=== PATIENT | male | born 1950 | race Caucasian/White ===

== ENCOUNTER 2025-03-24 08:43 | Outpatient (AMB) | payer MEDICARE, SELFPAY ==
--- NOTE | 2025-03-24 08:57 | A.OFFPC_ITS ---
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: No Allergies tetracycline Allergy (Unknown, Verified 03/24/25 09:02) Unknown Medication List - Last Reconciled 03/24/25 by Monse Chu PA-C atorvastatin 40 mg PO DAILY warfarin 5 mg PO DAILY Tobacco use date assessed: 03/24/25 Fall risk assessment: No Falls in past year Last assessed Fall Risk: 03/24/25 Dental Screening Dental Screen Date: 03/24/25 Did you have a dental visit in the last 12 months?: Yes Did you have a dental problem in the last 6 months where you did not have access to dental care?: No Was dental information given to patient?: Patient has dentist HPI 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. He is transferring from [place]. -no acute concerns today. CV: Blood pressure today in the office is 116/64. He is not on any antihypertensives. He is anticoagulated on Coumadin. Cholesterol is managed with atorvastatin. Mitral valve replacement was 2018 at [facility] with past history of bacterial endocarditis. He is following with [facility].. He follows with cardiology and has annual echo. Most recent 1 was done last month and was stable with his valve functioning properly. He follows with the anticoagulation clinic at [place] and would like to continue following with them. Endo: States that his diabetes has been diet controlled. His last A1c was 6.9. Did not tolerate metformin in the past. He rarely monitors blood sugars. He states that he was diagnosed with diabetes following his mitral valve replacement. Uro: Has a erectile dysfunction not on any medication. Secondary to diabetes. Colonoscopy: Completed 2013-he was due in 2023, states that he does not want to do these anymore PSA: Due [facility] Medical History (Updated 03/24/25 @ 12:27 by Monse Chu PA-C) Endocarditis Surgical History (Updated 03/24/25 @ 12:27 by Monse Chu PA-C) Hx of colonoscopy History of hip surgery Mitral valve replaced Family History (Updated 03/24/25 @ 09:18 by Charu Nunez CMA) Mother Asthma Lymph node cancer Social History (Updated 03/24/25 @ 09:18 by Charu Nunez CMA) Housing: House Alcohol intake: former Comment: stopped 2 year ago 2022 Patient Tobacco Use Status: Never used Tobacco e-Cigarette/Vaping Use: Never Used Second Hand Smoke Exposure: Yes (limited) service: No 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al status: retired Cognitive needs: No Hearing needs: No Vision needs: No Questionnaire PHQ-9 Over the last 2 weeks, how often have you been bothered by any of the following problems? 1. Little interest or pleasure in doing things: not at all 2. Feeling down, depressed, or hopeless: not at all 3. Trouble falling or staying asleep, or sleeping too much: not at all 4. Feeling tired or having little energy: not at all 5. Poor appetite or overeating: not at all 6. Feeling bad about yourself - or that you are a failure or have let yourself or your family down: not at all 7. Trouble concentrating on things, such as reading the newspaper or watching television: not at all 8. Moving or speaking so slowly that other people could have noticed. Or the opposite - being so fidgety or restless that you have been moving around a lot more than usual: not at all 9. Thoughts that you would be better off or of hurting yourself in some way: not at all Total score: 0 Depression Screening Interpretation: Negative Depression Screening Done: Yes 40983 - PHQ-9 Billing: Yes Source: Developed by Drs. Luis San, Lyndsay Lewis, Anthony Bonilla and colleagues, with an educational domingo from [employer]. Thrive Questionnaire Date Thrive assessed: 03/24/25 I am a: Patient What is your living situation today?: I have a steady place to live Within the past 12 months, did the food you bought not last and you didn't have the money to get more?: Never true Within the past 12 months, did you worry whether your food would run out before you got money to buy more?: Never true Do you have trouble paying for medicines?: No Do you have trouble getting transportation to medical appointments?: No Do you have trouble paying your heating and electricity bill?: No Do you have trouble taking care of your child, family member or friend?: No Do you have trouble with day-to-day activities such as bathing, preparing meals, shopping, managing finances, etc.?: No Are you currently unemployed and looking for a job?: No Are you interested in more education?: No Please select the resources that you would like help with: None Currently or been in a relationship where the following occur: No concerns reported THRIVE Score: 0 AUDIT C Alcohol Use Questionnaire (AUDIT-C) 1. How often do you have a drink containing alcohol?: Never 3. How often do you have six or more drinks on one occasion?: Never Total Score: 0 GRZEGORZ-7 AMB Questionnaire GRZEGORZ-7 Date GRZEGORZ - 7 assessed: 03/24/25 Feeling nervous, anxious, or on edge: 0 = Not at all Not being able to stop or control worryin = Not at all Worrying too much about different things: 0 = Not at all Trouble relaxin = Not at all Being so restless that it is hard to sit still: 0 = Not at all Becoming easily annoyed or irritable: 0 = Not at all Feeling afraid as if something awful might happen: 0 = Not at all Total GRZEGORZ-7 score (0-4 normal; 5-9 mild; 10-14 moderate; 15-21 severe): 0 Source: Developed by Drs. Luis San, Lyndsay Lewis, Anthony Bonilla and colleagues, with an educational domingo from [employer]. GRZEGORZ-7 Assessment Billing GRZEGORZ-7 Assessment Tool: GRZEGORZ-7 Assessment 69054 Physical exam (Primary Care) Vital Signs: Last Vital Signs Temp 98.1 F 03/24/25 09:01 Pulse 81 03/24/25 09:01 Resp 14 03/24/25 09:01 BP 116/64 03/24/25 09:14 Pulse Ox 98 03/24/25 09:01 Oxygen Delivery Method Room Air 03/24/25 09:01 BMI result Body Mass Index 21.9 Tobacco/Smoking Status: Tobacco use Status Tobacco use date assessed 03/24/25 03/24/25 09:01 Patient Tobacco Use Status Never used Tobacco 03/24/25 09:18 e-Cigarette/Vaping Use Never Used 03/24/25 09:07 PHQ-9: PHQ-9 Score PHQ-9: Total score 0 03/24/25 09:17 Depression Screening Interpretation: Negative Thrive Assessment: Date of Thrive Assessment Date Thrive assessed 03/24/25 03/24/25 09:17 Currently or been in a relationship where the following occur: No concerns reported Const Orientation/consciousness: patient oriented x3 HENMT Ears: hearing grossly normal bilaterally Neck Thyroid: Thyroid normal Lymphatic: no lymphadenopathy noted Resp Auscultation: clear to auscultation bilaterally Cardio Rhythm: abnormal rhythm irregularly irregular Heart sounds: Murmur heart sound present GI Inspection: Yes normal to inspection Palpation (GI): Soft to palpation and Other GI palpation findings present (nontender, no cva tenderness) Auscultation: normoactive bowel sounds Rectal Exam - Male: Yes deferred Skin General skin exam: no rashes or lesions noted Neuro General: patient oriented x3, gait normal and no focal motor deficits Coding Level of Care Code New Pt Level 4 (59040) Complex EM visit Add On G2211 Diagnoses Diet-controlled type 2 diabetes mellitus E11.9 Hyperlipidemia E78.5 Anticoagulated on Coumadin Z79.01 A-fib I48.91 S/P mitral valve replacement Z95.2 Additional Codes GRZEGORZ-7 Assessment Billing - GRZEGORZ-7 Assessment Tool: GRZEGORZ-7 Assessment 10551 ([id number]) PHQ-9 - 07632 - PHQ-9 Billing: Yes ([id number]) Assessment & Plan Assessment & Plan (1) Diet-controlled type 2 diabetes mellitus: Code(s): E11.9 - Type 2 diabetes mellitus without complications Category: Medical Plan: Labs ordered today. We will follow up pending test results (2) Hyperlipidemia: Code(s): E78.5 - Hyperlipidemia, unspecified Category: Medical Plan: Continue atorvastatin 40 mg. Lipids and LFTs ordered (3) Anticoagulated on Coumadin: Code(s): Z79.01 - [facility] (current) use of 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 Category: Medical Plan: Continue following with the anticoagulation clinic (4) A-fib: Code(s): I48.91 - Unspecified atrial fibrillation Category: Medical Plan: Following closely with Cardiology (5) S/P mitral valve replacement: Code(s): Z95.2 - Presence of prosthetic heart valve Category: Surgical Plan: As above. 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 Microalbumin, Random (w Creat) Today E11.9 - Type 2 diabetes mellitus without complications, E78.5 - Hyperlipidemia, unspecified, I48.91 - Unspecified atrial fibrillation, Z79.01 - [facility] (current) use of 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 Hemoglobin A1c Today E11.9 - Type 2 diabetes mellitus without complications, E78.5 - Hyperlipidemia, unspecified, I48.91 - Unspecified atrial fibrillation, R73.01 - Impaired fasting glucose, Z79.01 - [facility] (current) use of 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 Glutamic acid decarboxylase Ab Today E11.9 - Type 2 diabetes mellitus without complications, E78.5 - Hyperlipidemia, unspecified Islet Cell Antibody Scrn/Titer Today E11.9 - Type 2 diabetes mellitus without complications, E78.5 - Hyperlipidemia, unspecified Comprehensive [place]. 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
[2025-03-24 09:01] VITALS: BP 140/70; PULSE 81; RESP 14; TEMP 36.7; O2SAT 98; BMI 21.9
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
[2025-03-24 09:14] VITALS: BP 116/64
== END 2025-03-24 09:47 | disposition home or self-care (01) ==
LOC: HO.HMCFM 08:44
PROVIDERS: PCP Physician Assistant; Visit Provider Physician Assistant
DX: E11.9 Type 2 diabetes mellitus without complications (principal); E78.5 Hyperlipidemia, unspecified; Z79.01 Long term (current) use of 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; I48.91 Unspecified atrial fibrillation; Z95.2 Presence of prosthetic heart valve

== ENCOUNTER → 2025-03-24 08:43 | Outpatient (BNVA) | payer MEDICARE, SELFPAY | PROVIDERS: PCP Physician Assistant; Visit Provider Physician Assistant | DX: E11.9 Type 2 diabetes mellitus without complications (principal); E78.5 Hyperlipidemia, unspecified; I48.91 Unspecified atrial fibrillation; Z79.01 Long term (current) use of 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; Z95.2 Presence of prosthetic heart valve | CPT/HCPCS: 96127; 99202 ==

== ENCOUNTER 2025-03-25 08:20 | Outpatient (REF) | payer MEDICARE, SELFPAY ==
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
[2025-03-25 11:08] LABS: MANUAL DIFF FLAG NO
[2025-03-25 11:27] LABS: Basophils Percent Auto 0.6 % (0-2); Eosinophils Absolute Auto 0.1 X10*3/uL (0.0-0.4); Hematocrit 43.8 % (42.0-52.0); Hemoglobin 14.4 g/dl (14.0-18.0); Imm Gran Abs Auto 0.02 X10*3/uL (0.00-0.03); Imm Gran Pct Auto 0.4 % (0.0-0.4); Lymphocytes Absolute Auto 0.9 X10*3/uL (1.2-4.9); Lymphocytes Percent Auto 18.7 % (20-40); Mean Corpuscular HGB Conc 32.9 g/dl (31.0-36.0); Mean Corpuscular Hemoglobin 28.3 pg (27.0-33.0); Mean Corpuscular Volume 86.2 fL (80.0-98.0); Mean Platelet Volume 9.5 fL (9.4-12.4); Monocytes Absolute Auto 0.5 X10*3/uL (0.1-1.2); Monocytes Percent Auto 10.3 % (2-11); Neutrophils Absolute Auto 3.4 x10*3/uL (2.0-8.3); Platelet Count 245 X10*3/uL (160-400); Red Blood Count 5.08 X10*6/uL (4.60-5.80); Red Cell Distribution Width 13.2 % (11.0-16.0)
[2025-03-25 11:39] LABS: Estimated Average Glucose 160 mg/dL; Hemoglobin A1C 203.6784 umol/L; Hemoglobin A1c % 7.2 % (<6.0); Total Hemoglobin (HGBA1C) 3680.6919 umol/L
[2025-03-25 12:04] LABS: Alanine Aminotransferase 31 U/L (0-40); Albumin Level 4.2 g/dL (3.5-5.0); Alkaline Phosphatase 80 U/L (39-117); Anion Gap 8 (12-20); Aspartate Amino Transferase 35 U/L (5-37); Bilirubin Total 1.2 mg/dL (0.0-1.0); Blood Urea Nitrogen 16 mg/dL (9-16); Calcium 9.7 mg/dL (8.4-10.2); Carbon Dioxide 28 mmol/L (22-29); Chloride 108 mmol/L (96-108); Cholesterol 165 mg/dL (<200); Estimated Glomerular Filt Rate > 60; Glucose Fasting 138 mg/dL (60-99); HDL Cholesterol 44 mg/dL (>40); LDL Cholesterol Calculated 102 mg/dL (<100); Potassium 4.5 mmol/L (3.3-5.1); Sodium 139 mmol/L (135-145); TSH reflex Free T4 2.45 uIU/mL (0.32-4.0); Total Protein 7.6 g/dL (6.5-8.0); Triglycerides 99 mg/dL (<150)
[2025-03-25 12:24] LABS: Creatinine Urine 62.54 mg/dL; Microalbum/Creatinine Ratio Ur 12.7 ug/mg cr (<30)
[2025-03-27 04:32] LABS: C Peptide 2.38 ng/mL (0.80-3.85)
[2025-03-31 04:53] LABS: Islet Cell Antibody Screen NEGATIVE (NEGATIVE)
[2025-03-31 19:49] LABS: Glutamic acid decarboxylase Ab <5 IU/mL (<5)
== END 2025-03-25 08:21 | disposition home or self-care (01) ==
LOC: HO.WFDLDS 08:20
PROVIDERS: Visit Provider Physician Assistant
DX: Z01.89 Encounter for other specified special examinations (principal); I48.91 Unspecified atrial fibrillation; E78.5 Hyperlipidemia, unspecified; E11.9 Type 2 diabetes mellitus without complications; Z79.01 Long term (current) use of 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; Z12.5 Encounter for screening for malignant neoplasm of prostate
CPT/HCPCS: 36415; 80053; 80061; 82043; 82570; 83036; 84153; 84443; 84681; 85025; 86341

== ENCOUNTER 2025-04-27 07:47 | Outpatient (AMB) | payer MEDICARE, SELFPAY ==
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
[2025-04-27 08:35] LABS: Prothrombin Time Whole Bld POC 29.8 sec (11.1-13.5); ~PT, ~INR - Anti Coag Clinic 2.5 (0.9-1.1)
[2025-04-27 11:05] VITALS: BP 124/64; PULSE 76
== END 2025-04-27 11:26 | disposition home or self-care (01) ==
LOC: HO.ACS 07:47
PROVIDERS: PCP Physician Assistant; Visit Provider Internal Medicine Medical Oncology
DX: Z79.01 Long term (current) use of 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 (principal)

== ENCOUNTER → 2025-04-27 07:47 | Outpatient (BNVA) | payer MEDICARE, SELFPAY | PROVIDERS: PCP Physician Assistant; Visit Provider Internal Medicine Medical Oncology | DX: Z95.2 Presence of prosthetic heart valve (principal); I48.91 Unspecified atrial fibrillation; Z79.01 Long term (current) use of 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; Z51.81 Encounter for therapeutic drug level monitoring | CPT/HCPCS: 85610; 99202 ==

== ENCOUNTER 2025-05-11 08:03 | Outpatient (AMB) | payer MEDICARE, SELFPAY ==
--- OUTSIDE RECORDS SUMMARY | 2025-05-11 08:09 | XMS_ITS | Encounter Summary ---
Author Organization [facility] Address [address] [place] [address] Care Team Providers Care Furniture Dipper Name Role Phone Maggi Silva DO Primary Care Provider Unavaila Lorena Crabtree MD Unavailable [phone] Darcie Caballero MD Primary Care Provider Un available Community, Pcp Primary Care Provider Unavailabl e Reason for Visit * Reason Comments E-prescribe Rx Request Encounter Details Date Type Department Care Team Description 08/24/2022 Refill Adult Medicine [address] [address] Sharon Shields PA-C [address] [place] [address] E-prescribe Rx Request Social History Tobacco Use Types Packs/Day Years Used Date Smoking Tobacco: Never Smokeless Tobacco: Never Alcohol Use Standard Drinks/Week Comments Yes 0 (1 standard drink = 0.6 oz pur e alcohol) beer occasionally Alcohol Habits Answer Date Recorded How often do you have a drink containing alcohol ? Monthly or less 06/30/2024 How many drinks containing a lcohol do you have on a typical day when you are drinking? 1 or 2 06/30/2024 How often do you have six or more drinks on one occasion? Never 06/30/2024 Social Isolation Answer Date Recorded In a typical week, how many times do you talk on the phone with family, friends, or neighbors? More than three times a week 06/30/2024 How often do you get togethe r with friends or relatives? More than three times a week 06/30/2024 How often do you attend chur or adventism services? More than 4 times per year 06/30/2024 Do you belong to any clubs o r organizations such as quaker groups, unions, fraternal or athletic groups, or school groups? No 06/30/2024 How often do you attend meet ings of the clubs or organizations you belong to? Never 06/30/2024 Are you now , , , , never or living with a partner? 06/30/2024 Physical Activity Answer Date Recorded On average, how many days pe r week do you engage in moderate to strenuous exercise (like walking fast, running, jogging, dancing, swimming, biking, or other activities that cause a light or heavy sweat)? 7 days 06/30/2024 On average, how many minutes do you engage in exercise at this level? 20 min 06/30/2024 Stress Answer Date Recorded Do you feel stress - tense, restless, nervous, or anxious, or unable to sleep at night because your mind is troubled all the time - these days? Not at all 06/30/2024 Financial Resource Strain Answer Date R ecorded How hard is it for you to pa y for the very basics like food, housing, medical care, and heating? Not hard at all 06/30/2024 Intimate Partner Violence Answer Date R ecorded Within the last year, have y ou been afraid of your partner or ex-partner? No 06/30/2024 Within the last year, have y ou been humiliated or emotionally abused in other ways by your partner or ex-partner? No Within the last year, have y ou been kicked, hit, slapped, or otherwise physically hurt by your partner or ex-partner? No 06/30/2024 Within the last year, have y ou been raped or forced to have any kind of sexual activity by your partner or ex-partner? No 06/30/2024 Food Insecurity Answer Date Recorded Within the past 12 months, y ou worried that your food would run out before you got money to buy more. Never true 06/30/2024 Within the past 12 months, t he food you bought just didn't last and you didn't have money to get more. Never true 06/30/2024 Transportation Needs Answer Date Record ed In the past 12 months, has l ack of transportation kept you from medical appointments or from getting medications? No 06/03 In the past 12 months, has l ack of transportation kept you from meetings, work, or getting things needed for daily living? No 06/30/2024 Housing Stability Answer Date Recorded In the last 12 months, was t here a time when you were not able to pay the mortgage or rent on time? No 06/30/2024 In the last 12 months, how many places have you lived? 1 06/30/2024 In the last 12 months, was t here a time when you did not have a steady place to sleep or slept in a fci (including now)? No 06/30/2024 Sex Assigned at Date Recorded Not on file Job Start Date Occupation Industry Not on file Not on file Not on file COVID-19 Exposure Response Date Recorded In the last 10 days, have yo u been in contact with someone who was confirmed or suspected to have Coronavirus/COVID-19? 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
[2025-05-11 08:22] LABS: Prothrombin Time Whole Bld POC 40.3 sec (11.1-13.5); ~PT, ~INR - Anti Coag Clinic 3.4 (0.9-1.1)
--- NOTE | 2025-05-11 08:27 | MHC.OFFVISCO ---
Intake Intake Visit Reasons: Anticoagulation Allergies tetracycline Allergy (Unknown, Verified 05/11/25 08:14) Unknown Medication List - Last Reconciled 05/11/25 by Leticia Mir RN atorvastatin 40 mg PO DAILY dulaglutide (Trulicity) 0.75 mg (0.5 mL) subcut QWEEK warfarin 5 mg See Protocol PO DAILY Nursing Note INR: 3.4 in therapeutic range Medications and supplements reviewed No changes in health, medications, or supplements, - He was eating more reds to help raise the INR Denies any signs and symptoms of bleeding or bruising or clotting. Bleeding, bruising, clotting discussed Nutritional guidance given Dose: 2.5MG X 1 DAY/ 5MG X 6 DAYS F/U INR: 3 WEEKS Patient verbalizes understanding of instructions given Anti-Coag Initial Assessment Social Hx Patient Tobacco Use Status: Never used Tobacco alcohol intake: former Alcohol intake frequency: does not drink Cardiovascular Hx: Arrhythmias (Atial Fib ) and Other (mitral valve replaced due to dental infection 2007 valve replaced titanium mechanical valve [facility] jud[facility] ) Endocrine Hx: Diabetes (diet controlled - being monitored ) Musculoskeletal Hx: Arthritis (back - general ) Blood Disorder Hx: Hyperlipidemia Cancer HX: No Psych. Illness/Depression: No Coding Level of Care Code Est Patient Level 1 Diagnoses Current use of anticoagulant therapy Z79.01 Results AMB INR Fingerstick AMB INR Fingerstick 3.4 Last Edit by Leticia Mir RN on 05/11/25 08:23 manual entry Assessment & Plan Assessment & Plan (1) Current use of anticoagulant therapy: Code(s): Z79.01 - shelter (current) use of 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 Category: Medical
== END 2025-05-11 08:30 | disposition home or self-care (01) ==
LOC: HO.ACS 08:03
PROVIDERS: PCP Physician Assistant; Visit Provider Internal Medicine Medical Oncology
DX: Z79.01 Long term (current) use of 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 (principal)

== ENCOUNTER → 2025-05-11 08:03 | Outpatient (BNVA) | payer MEDICARE, SELFPAY | PROVIDERS: PCP Physician Assistant; Visit Provider Internal Medicine Medical Oncology | DX: I48.91 Unspecified atrial fibrillation (principal); Z95.2 Presence of prosthetic heart valve; Z79.01 Long term (current) use of 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 | CPT/HCPCS: 85610; 99211 ==

== ENCOUNTER 2025-06-01 08:24 | Outpatient (AMB) | payer MEDICARE, SELFPAY ==
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
--- NOTE | 2025-06-01 08:39 | MHC.OFFVISCO ---
Intake Intake Visit Reasons: Anticoagulation Allergies tetracycline Allergy (Unknown, Verified 06/01/25 08:33) Unknown Medication List - Last Reconciled 06/01/25 by Geno Rocha RN atorvastatin 40 mg PO DAILY dulaglutide (Trulicity) 0.75 mg (0.5 mL) subcut QWEEK Held on 04/27/25. Instructions: Doctor's Order warfarin 5 mg See Protocol PO DAILY Nursing Note INR: 2.8- in therapeutic range of 2.5-3.5 Medications and supplements reviewed- no changes, trulicity cont on hold No changes in health, diet, medications, or supplements, Denies any signs and symptoms of bleeding or bruising or clotting. 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 Illness/Depression: No Coding Level of Care Code Est Patient Level 1 Diagnoses Current use of anticoagulant therapy Z79.01 Assessment & Plan Assessment & Plan (1) Current use of anticoagulant therapy: Code(s): Z79.01 - snf (current) use of 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 Category: Medical
[2025-06-01 08:40] LABS: Prothrombin Time Whole Bld POC 33.0 sec (11.1-13.5); ~PT, ~INR - Anti Coag Clinic 2.8 (0.9-1.1)
== END 2025-06-01 08:50 | disposition home or self-care (01) ==
LOC: HO.ACS 08:24
PROVIDERS: PCP Physician Assistant; Visit Provider Internal Medicine Medical Oncology
DX: Z79.01 Long term (current) use of 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 (principal)

== ENCOUNTER → 2025-06-01 08:24 | Outpatient (BNVA) | payer MEDICARE, SELFPAY | PROVIDERS: PCP Physician Assistant; Visit Provider Internal Medicine Medical Oncology | DX: I48.91 Unspecified atrial fibrillation (principal); Z95.2 Presence of prosthetic heart valve; Z79.01 Long term (current) use of 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; Z51.81 Encounter for therapeutic drug level monitoring | CPT/HCPCS: 85610; 99211 ==

== ENCOUNTER 2025-06-28 07:56 | Outpatient (AMB) | payer MEDICARE, SELFPAY ==
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
--- OUTSIDE RECORDS SUMMARY | 2025-06-28 07:58 | XMS_ITS ---
Author Name [facility] Organization Unknown Care Team Organization Name Specialty Phone Email Start Date End Da te [facility] Maggi Silva DO Primary Care 02/06/202307/02 [facility] SUSAN VELASQUEZ Primary Care 10/09/2022 07/20/2024
[2025-06-28 08:05] LABS: Prothrombin Time Whole Bld POC 24.3 sec (11.1-13.5); ~PT, ~INR - Anti Coag Clinic 2.0 (0.9-1.1)
--- NOTE | 2025-06-28 08:13 | MHC.OFFVISCO ---
Intake Intake Visit Reasons: Anticoagulation Allergies tetracycline Allergy (Unknown, Verified 06/28/25 07:59) Unknown Medication List - Last Reconciled 06/28/25 by Lawanda Cabrera RN atorvastatin 40 mg PO DAILY dulaglutide (Trulicity) 0.75 mg (0.5 mL) subcut QWEEK Held on 04/27/25. Instructions: Doctor's Order warfarin 5 mg See Protocol PO DAILY Nursing Note INR: 2.0?out of therapeutic range of 2.5-3.5 Pt denies missed dose but states he has lost weight and is trying to eat healthier due to high Hgb-A1C. Medications and supplements reviewed Patient status: feels well Medications or supplements: no changes Diet: as above mentioned Denies any signs and symptoms of bleeding or clotting or unusual bruising Bleeding, bruising, clotting discussed Nutritional guidance given: to avoid greens X 2 days and to have a serving of foods that raise the INR. Food list discussed. Dose: increase today's dose to 7.5mg (usual 5mg) then 5mg daily Pt to return in 3 days F/U INR Date: 07/01/25?? Patient verbalizing understanding of instructions given. T/C to provider Monse Chu's office. Spoke to Tarik the nurse. Reported INR of 2.0 with dosing plan and question of need for lovenox. Also next retest date. 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 Illness/Depression: No Coding Level of Care Code Est Patient Level 1 Diagnoses Current use of anticoagulant therapy Z79.01 Results AMB INR Fingerstick AMB INR Fingerstick 2.0 Last Edit by Lawanda Cabrera RN on 06/28/25 08:14 interface delay Assessment & Plan Assessment & Plan (1) Current use of anticoagulant therapy: Code(s): Z79.01 - halfway (current) use of 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 Category: Medical
== END 2025-06-28 08:41 | disposition home or self-care (01) ==
LOC: HO.ACS 07:56
PROVIDERS: PCP Physician Assistant; Visit Provider Internal Medicine Medical Oncology
DX: Z79.01 Long term (current) use of 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 (principal)

== ENCOUNTER → 2025-06-28 07:56 | Outpatient (BNVA) | payer MEDICARE, SELFPAY | PROVIDERS: PCP Physician Assistant; Visit Provider Internal Medicine Medical Oncology | DX: I48.91 Unspecified atrial fibrillation (principal); Z95.2 Presence of prosthetic heart valve; Z79.01 Long term (current) use of 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; Z51.81 Encounter for therapeutic drug level monitoring | CPT/HCPCS: 85610; 99211 ==

== ENCOUNTER 2025-07-01 08:25 | Outpatient (AMB) | payer MEDICARE, SELFPAY ==
[2025-07-01 08:32] LABS: Prothrombin Time Whole Bld POC 34.4 sec (11.1-13.5); ~PT, ~INR - Anti Coag Clinic 2.9 (0.9-1.1)
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
--- NOTE | 2025-07-01 08:40 | MHC.OFFVISCO ---
Intake Intake Visit Reasons: Anticoagulation Allergies tetracycline Allergy (Unknown, Verified 07/01/25 08:27) Unknown Medication List - Last Reconciled 07/01/25 by Leticia Mir RN atorvastatin 40 mg PO DAILY dulaglutide (Trulicity) 0.75 mg (0.5 mL) subcut QWEEK Held on 04/27/25. Instructions: Doctor's Order prednisolone acetate 1% 1 drp ophthalmic-Right QID warfarin 5 mg See Protocol PO DAILY Nursing Note INR: 2.9 in therapeutic range Medications and supplements reviewed No changes in health, diet, medications, or supplements, Denies any signs and symptoms of bleeding or bruising or clotting. 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 Illness/Depression: No Coding Level of Care Code Est Patient Level 1 Diagnoses Current use of anticoagulant therapy Z79.01 Results AMB INR Fingerstick AMB INR Fingerstick 2.9 Last Edit by Leticia Mir RN on 07/01/25 08:35 MANUAL ENTRY Assessment & Plan Assessment & Plan (1) Current use of anticoagulant therapy: Code(s): Z79.01 - [facility] (current) use of 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 Category: Medical
== END 2025-07-01 08:44 | disposition home or self-care (01) ==
LOC: HO.ACS 08:25
PROVIDERS: PCP Physician Assistant; Visit Provider Internal Medicine Medical Oncology
DX: Z79.01 Long term (current) use of 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 (principal)

== ENCOUNTER → 2025-07-01 08:25 | Outpatient (BNVA) | payer MEDICARE, SELFPAY | PROVIDERS: PCP Physician Assistant; Visit Provider Internal Medicine Medical Oncology | DX: Z51.81 Encounter for therapeutic drug level monitoring (principal); Z79.01 Long term (current) use of 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 | CPT/HCPCS: 85610; 99211 ==

== ENCOUNTER 2025-07-15 07:52 | Outpatient (AMB) | payer MEDICARE, SELFPAY ==
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
--- OUTSIDE RECORDS SUMMARY | 2025-07-15 07:54 | XMS_ITS | Encounter Summary ---
Author Organization [facility] Address [address] [place] [address] Care Team Providers Care Men'S Designer Name Role Phone Maggi Silva DO Primary Care Provider Unavaila [facility] Lorena Burleson MD Unavailable [phone] Darcie Caballero MD Primary Care Provider Un available Community, Pcp Primary Care Provider Unavailabl e Reason for Visit * Reason Comments E-prescribe Rx Request Encounter Details Date Type Department Care Team Description 08/24/2022 Refill Adult Medicine [address] [address] Sharon Shields PA-C E-prescribe Rx Request Social History Tobacco Use [...] How often do you attend chur or congregational services? More than 4 times per year 06/30/2024 Do you belong to any clubs o r organizations such as temple groups, unions, fraternal or athletic groups, or [...] place to sleep or slept in a snf (including now)? No 06/30/2024 Sex Assigned at [...] uncontrolled documented in this encounter Care Teams Men'S Designer Relationship Specialty Start Date End Date Maggi Silva DO PCP - General Internal Medicine 12/05/21 05/17/24 Darcie Caballero MD PCP - General Internal Medicine 05/18/24 [facility], Pcp PCP - General Internal Medicine 09/07/24 Lorena Burleson MD Specialist Cardiology 05/01/23 documented as of this encounter
[2025-07-15 07:59] LABS: Prothrombin Time Whole Bld POC 36.2 sec (11.1-13.5); ~PT, ~INR - Anti Coag Clinic 3.0 (0.9-1.1)
--- NOTE | 2025-07-15 08:05 | MHC.OFFVISCO ---
Intake Intake Visit Reasons: Anticoagulation Allergies tetracycline Allergy (Unknown, Verified 07/15/25 07:52) Unknown Medication List - Last Reconciled 07/15/25 by Leticia Mir RN atorvastatin 40 mg PO DAILY dulaglutide (Trulicity) 0.75 mg (0.5 mL) subcut QWEEK Held on 04/27/25. Instructions: Doctor's Order prednisolone acetate 1% 1 drp ophthalmic-Right QID warfarin 5 mg See Protocol PO DAILY Nursing Note INR: 3.0 in therapeutic range Medications and supplements reviewed No changes in health, diet, medications, or supplements, Denies any signs and symptoms of bleeding or bruising or clotting. 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 Illness/Depression: No Coding Level of Care Code Est Patient Level 1 Diagnoses Current use of anticoagulant therapy Z79.01 Results AMB INR Fingerstick AMB INR Fingerstick 3.0 Last Edit by Leticia Mir RN on 07/15/25 08:03 MANUAL ENTRY Assessment & Plan Assessment & Plan (1) Current use of anticoagulant therapy: Code(s): Z79.01 - termite exterminator helper (current) use of 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 Category: Medical
== END 2025-07-15 08:08 | disposition home or self-care (01) ==
LOC: HO.ACS 07:52
PROVIDERS: PCP Physician Assistant; Visit Provider Internal Medicine Medical Oncology
DX: Z79.01 Long term (current) use of 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 (principal)

== ENCOUNTER → 2025-07-15 07:52 | Outpatient (BNVA) | payer MEDICARE, SELFPAY | PROVIDERS: PCP Physician Assistant; Visit Provider Internal Medicine Medical Oncology | DX: Z51.81 Encounter for therapeutic drug level monitoring (principal); Z79.01 Long term (current) use of 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 | CPT/HCPCS: 85610; 99211 ==

== ENCOUNTER 2025-07-28 09:35 | Outpatient (AMB) | payer MEDICARE, SELFPAY ==
--- NOTE | 2025-07-28 09:53 | MHC.PC.OV ---
Vital Signs 07/28/25 10:02 Height 6 ft 2.8 in Weight 167 lb 4 oz BMI 21.0 BP 122/74 Blood Pressure Location Rt brachial Respiration 14 Pulse 81 Pulse Source Pulse Oximeter Pulse Oximetry (%) 100 Oxygen Delivery Method Room Air Intake Visit Reasons: med f/u Intake Note: Medication follow up Hand Hide Stretcher Required: No Allergies tetracycline Allergy (Unknown, Verified 07/28/25 10:00) Unknown Medication List - Last Reconciled 07/28/25 by Monse Chu PA-C atorvastatin 40 mg PO DAILY warfarin 5 mg See Protocol PO DAILY Tobacco use date assessed: 03/24/25 Fall risk assessment: No Falls in past year Last assessed Fall Risk: 07/28/25 Dental Screening Dental Screen Date: 03/24/25 HPI med f/u HPI Details Patient is a 74-year-old male with a significant past medical history of controlled type 2 diabetes, ED, hyperlipidemia, AFib, history of mitral valve replacement, glaucoma presenting today for a follow up. He is transferring from [place]. -no acute concerns today. CV: Blood pressure today in the office is 122/74. He is not on any antihypertensives. He is anticoagulated on Coumadin. Cholesterol is managed with atorvastatin. Mitral valve replacement was 2018 at [facility] with past history of bacterial endocarditis. He is following with [facility].. He follows with cardiology and has annual echo. He follows with the anticoagulation clinic at [facility] and would like to continue following with them. Endo: States that his diabetes has been diet controlled. His last A1c was 6.8. Did not tolerate metformin in the past. He rarely monitors blood sugars. He states that he was diagnosed with diabetes following his mitral valve replacement. Uro: Has a erectile dysfunction not on any medication. Secondary to diabetes. Colonoscopy: Completed 2013-he was due in 2023, states that he does not want to do screening anymore PSA: UTD [facility] Medical History (Updated 04/27/25 @ 08:46 by Leticia Mir RN) Current use of anticoagulant therapy Endocarditis Surgical History (Updated 03/24/25 @ 12:27 by Monse Chu PA-C) Hx of colonoscopy History of hip surgery Mitral valve replaced Family History (Updated 03/24/25 @ 09:18 by Charu Nunez CMA) Mother Asthma Lymph node cancer Social History (Updated 03/24/25 @ 09:18 by BASSAM [place] Housing: House (stairs ) Alcohol intake: former Comment: stopped 2 year ago 2022 Patient Tobacco Use Status: Never used Tobacco e-Cigarette/Vaping Use: Never Used Second Hand Smoke Exposure: Yes (limited) service: No 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al status: retired 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: retiered 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al exposures/hazards: No Cognitive needs: No Hearing needs: No Vision needs: No Questionnaire Thrive Questionnaire Date Thrive assessed: 03/24/25 I am a: Patient What is your living situation today?: I have a steady place to live Within the past 12 months, did the food you bought not last and you didn't have the money to get more?: Never true Within the past 12 months, did you worry whether your food would run out before you got money to buy more?: Never true Do you have trouble paying for medicines?: No Do you have trouble getting transportation to medical appointments?: No Do you have trouble paying your heating and electricity bill?: No Do you have trouble taking care of your child, family member or friend?: No Do you have trouble with day-to-day activities such as bathing, preparing meals, shopping, managing finances, etc.?: No Are you currently unemployed and looking for a job?: No Are you interested in more education?: No Please select the resources that you would like help with: None Currently or been in a relationship where the following occur: No concerns reported THRIVE Score: 0 AUDIT C Alcohol Use Questionnaire (AUDIT-C) 1. How often do you have a drink containing alcohol?: Never 3. How often do you have six or more drinks on one occasion?: Never Total Score: 0 GRZEGORZ-7 AMB Questionnaire GRZEGORZ-7 Date GRZEGORZ - 7 assessed: 03/24/25 Source: Developed by Drs. Luis San, Lyndsay Lewis, Anthony Bonilla and colleagues, with an educational domingo from [employer]. Physical exam (Primary Care) Vital Signs: Last Vital Signs Pulse 81 07/28/25 10:02 Resp 14 07/28/25 10:02 BP 122/74 07/28/25 10:02 Pulse Ox 100 07/28/25 10:02 Oxygen Delivery Method Room Air 07/28/25 10:02 BMI result Body Mass Index 21.0 Tobacco/Smoking Status: Tobacco use Status Tobacco use date assessed 03/24/25 07/28/25 09:53 Patient Tobacco Use Status Never used Tobacco 07/28/25 09:53 e-Cigarette/Vaping Use Never Used 07/28/25 09:53 Thrive Assessment: Date of Thrive Assessment Date Thrive assessed 03/24/25 07/28/25 09:53 Currently or been in a relationship where the following occur: No concerns reported Const Orientation/consciousness: patient oriented x3 HENMT Ears: hearing grossly normal bilaterally Neck Thyroid: Thyroid normal Lymphatic: no lymphadenopathy noted Resp Auscultation: clear to auscultation bilaterally Cardio Rhythm: abnormal rhythm irregularly irregular GI Inspection: Yes normal to inspection Palpation (GI): Soft to palpation and Other GI palpation findings present (nontender, no cva tenderness) Auscultation: normoactive bowel sounds Rectal Exam - Male: Yes deferred Skin General skin exam: no rashes or lesions noted Neuro General: patient oriented x3, gait normal and no focal motor deficits Results AMB Hemoglobin A1c AMB Hemoglobin A1c 6.8 % Last Edit by Charu Nunez CMA on 07/28/25 10:13 Results Reviewed Results Reviewed: Laboratory Last Values Hgb A1c (Clinic) 6.8 % (4.0-6.0) H 07/28/25 10:10 Coding Level of Care Code Est Pt Level 4 (30013) Complex EM visit Add On G2211 Diagnoses Diet-controlled type 2 diabetes mellitus E11.9 Hyperlipidemia E78.5 A-fib I48.91 S/P mitral valve replacement Z95.2 Assessment & Plan Assessment & Plan (1) Diet-controlled type 2 diabetes mellitus: Code(s): E11.9 - Type 2 diabetes mellitus without complications Category: Medical Plan: Diet controlled. We will continue to monitor. (2) Hyperlipidemia: Code(s): E78.5 - Hyperlipidemia, unspecified Category: Medical Plan: Lipids ordered (3) A-fib: Code(s): I48.91 - Unspecified atrial fibrillation Category: Medical Plan: On anticoagulation. Rate controlled (4) S/P mitral valve replacement: Code(s): Z95.2 - Presence of prosthetic heart valve Category: Surgical Plan: As above Orders: Orders AMB Hemoglobin A1c 07/28/25 E11.9 - Type 2 diabetes mellitus without complications Hemoglobin A1c 07/28/25 E11.9 - Type 2 diabetes mellitus without complications, E78.5 - Hyperlipidemia, unspecified, I48.91 - Unspecified atrial fibrillation, R73.01 - Impaired fasting glucose, Z95.2 - Presence of prosthetic heart valve Complete Blood Count Auto Diff 07/28/25 E11.9 - Type 2 diabetes mellitus without complications, E78.5 - Hyperlipidemia, unspecified, I48.91 - Unspecified atrial fibrillation, Z95.2 - Presence of prosthetic heart valve Comprehensive [place]. Panel Fast 07/28/25 E11.9 - Type 2 diabetes mellitus without complications, E78.5 - Hyperlipidemia, unspecified, I48.91 - Unspecified atrial fibrillation, Z95.2 - Presence of prosthetic heart valve TSH reflex Free T4 07/28/25 E11.9 - Type 2 diabetes mellitus without complications, E78.5 - Hyperlipidemia, unspecified, I48.91 - Unspecified atrial fibrillation, Z95.2 - Presence of prosthetic heart valve Lipid Panel 07/28/25 E11.9 - Type 2 diabetes mellitus without complications, E78.5 - Hyperlipidemia, unspecified, I48.91 - Unspecified atrial fibrillation, Z95.2 - Presence of prosthetic heart valve Microalbumin, Random (w Creat) 07/28/25 E11.9 - Type 2 diabetes mellitus without complications, E78.5 - Hyperlipidemia, unspecified, I48.91 - Unspecified atrial fibrillation, Z95.2 - Presence of prosthetic heart valve
[2025-07-28 10:02] VITALS: BP 122/74; PULSE 81; RESP 14; O2SAT 100; BMI 21.0
--- OUTSIDE RECORDS SUMMARY | 2025-07-28 10:14 | XMS_ITS | Encounter Summary ---
Author Organization [facility] Address [address] [place] [address] Care Team Providers Care Semiautomatic Taper Operator Name Role Phone Maggi Silva DO Primary Care Provider Unavaila [facility] Lorena Burleson MD Unavailable [phone] Darcie Caballero MD Primary Care Provider Un available Community, Pcp Primary Care Provider Unavailabl e Encounter Details Date Type Department Care Team Description 07/29/2023 [facility] Medical Records [address], [place] [id number] [place] [address] Social History Tobacco Use Types Packs/Day Years [...] week 06/30/2024 How often do you attend [facility] or shinto services? More than 4 times per year 06/30/2024 Do you belong to any clubs o r organizations such as christianity groups, unions, fraternal or athletic groups, or [...] place to sleep or slept in a custodial (including now)? No 06/30/2024 Sex Assigned at Date Recorded Not on file Job Start Date Occupation Industry Not on file Not on file Not on file COVID-19 Exposure Response Date Recorded In the last 10 days, have yo u been in contact with someone who was confirmed or suspected to have Coronavirus/COVID-19? No / Unsure 07/29/2023 8:01 AM EDT documented as of this encounter Plan of Treatment Not on file documented as of this encounter Visit Diagnoses Not on filedocumented in this encounter Care Teams Semiautomatic Taper Operator Relationship Specialty Start Date End Date Maggi Silva DO PCP - General Internal Medicine 12/05/21 05/17/24 Darcie Caballero MD PCP - General Internal Medicine 05/18/24 [facility], Pcp PCP - General Internal Medicine 09/07/24 Lorena Burleson MD Specialist Cardiology 05/01/23 documented as of this encounter
--- OUTSIDE RECORDS SUMMARY | 2025-07-28 10:14 | XMS_ITS | Encounter Summary ---
Author Organization [facility] Address [address] [place] [address] Care Team Providers Care Disciplinary Hearing Officer Name Role Phone Maggi Silva DO Primary Care Provider UnavailLorena Marie MD Unavailable [phone] Darcie Caballero MD Primary Care Provider Un available Community, Pcp Primary Care Provider Unavailabl e Encounter Details Date Type Department Care Team Description 01/25/2022 [facility] Medical Records [address] [place] [address] Abstract, Provider Social History Tobacco Use Types Packs/Day Years [...] week 06/30/2024 How often do you attend [facility] or shinto services? More than 4 times per year 06/30/2024 Do you belong to any clubs o r organizations such as hoahaoism groups, unions, fraternal or athletic groups, or [...] place to sleep or slept in a chcf (including now)? No 06/30/2024 Sex Assigned at Date Recorded Not on file Job Start Date Occupation Industry Not on file Not on file Not on file COVID-19 Exposure Response Date Recorded In the last month, have you been in contact with someone who was confirmed or suspected to have Coronavirus / COVID-19? No / Unsure 01/24/2022 8:50 AM EST documented as of this encounter Plan of Treatment Not on file documented as of this encounter Visit Diagnoses Not on filedocumented in this encounter Care Teams Disciplinary Hearing Officer Relationship Specialty Start Date End Date Maggi Silva DO PCP - General Internal Medicine 12/05/21 05/17/24 Darcie Caballero MD PCP - General Internal Medicine 05/18/24 [facility], Pcp PCP - General Internal Medicine 09/07/24 Lorena Burleson MD Specialist Cardiology 05/01/23 documented as of this encounter
--- OUTSIDE RECORDS SUMMARY | 2025-07-28 10:14 | XMS_ITS | Encounter Summary ---
Author Organization [facility] Address [address] [place] [address] Care Team Providers Care Evaluation Manager Name Role Phone Riddhi Fox MD Primary Care Provider UnavailBouchra Mondragon MD Primary Care Provider Unavailable Maggi Silva DO Primary Care Provider Unavaila Lorena Crabtree MD Unavailable [phone] Darcie Caballero MD Primary Care Provider Un available [facility], Pcp Primary Care Provider Unavailabl e Encounter Details Date Type Department Care Team Description 01/22/2020 Technical Assistant Report Medical Records [address] [place] [address] Lorena Burleson MD [address] [place] [id number] Social History Tobacco Use Types Packs/Day Years [...] How often do you attend chur or restoration services? More than 4 times per year 06/30/2024 Do you belong to any clubs o r organizations such as latter-day groups, unions, fraternal or athletic groups, or [...] place to sleep or slept in a detention (including now)? No 06/30/2024 Sex Assigned at Date Recorded Not on file Job Start Date Occupation Industry Not on file Not on file Not on file documented as of this encounter Plan of Treatment Not on file documented as of this encounter Visit Diagnoses Not on filedocumented in this encounter Care Teams Evaluation Manager Relationship Specialty Start Date End Date Riddhi Fox MD PCP - General 04/01/07 06/26/21 Bouchra Anne MD PCP - General Internal Medicine 06/27/2112/04 Maggi Silva DO PCP - General Internal Medicine 12/05/21 05/17/24 Darcie Caballero MD PCP - General Internal Medicine 05/18/24 [facility], Pcp PCP - General Internal Medicine 09/07/24 Lorena Burleson MD Specialist Cardiology 05/01/23 documented as of this encounter
--- OUTSIDE RECORDS SUMMARY | 2025-07-28 10:14 | XMS_ITS | Encounter Summary ---
Author Organization [facility] Address [address] [place] [address] Care Team Providers Care Artist Consultant Name Role Phone Riddhi Fox MD Primary Care Provider UnavailBouchra Mondragon MD Primary Care Provider Unavailable Maggi Silva DO Primary Care Provider Unavaila Lorena Crabtree MD Unavailable [phone] Darcie Caballero MD Primary Care Provider Un available [facility], Pcp Primary Care Provider Unavailabl e Encounter Details Date Type Department Care Team Description 03/03/2008 [facility] Medical Records [address] [place] [id number] Abstract, Provider Social History Tobacco Use Types Packs/Day Years Used Date Smoking Tobacco: Never Alcohol Use Standard Drinks/Week Comments No 0 (1 standard drink = 0.6 oz pur e alcohol) Alcohol Habits Answer Date Recorded How often [...] week 06/30/2024 How often do you attend [facility] or mormonism services? More than 4 times per year 06/30/2024 Do you belong to any clubs o r organizations such as buddhist groups, unions, fraternal or athletic groups, or [...] place to sleep or slept in a senior living (including now)? No 06/30/2024 Sex Assigned at Date Recorded Not on file Job Start Date Occupation Industry Not on file Not on file Not on file documented as of this encounter Plan of Treatment Not on file documented as of this encounter Procedures Procedure Name Priority Date/Time Associated Diagnosis Comments OUTSIDE EKG Routine 01/27/2008 documented in this encounter Results * OUTSIDE EKG (01/27/2008) 01/27/2008 CARDIOLOGY documented in this encounter Visit Diagnoses Not on filedocumented in this encounter Care Teams Artist Consultant Relationship Specialty Start Date End Date Riddhi Fox MD PCP - General 04/01/07 06/26/21 Bouchra Anne MD PCP - General Internal Medicine 06/27/2112/04 Maggi Silva DO PCP - General Internal Medicine 12/05/21 05/17/24 Darcie Caballero MD PCP - General Internal Medicine 05/18/24 [facility], Pcp PCP - General Internal Medicine 09/07/24 Lorena Burleson MD Specialist Cardiology 05/01/23 documented as of this encounter
--- OUTSIDE RECORDS SUMMARY | 2025-07-28 10:14 | XMS_ITS | Encounter Summary ---
Author Organization [facility] Address [address] [place] [address] Care Team Providers Care Financial Brokers Name Role Phone Maggi Silva DO Primary Care Provider Unavaila [facility] Lorena Burleson MD Unavailable [phone] Darcie Caballero MD Primary Care Provider Un available Community, Pcp Primary Care Provider Unavailabl e Reason for Visit * Reason Comments E-prescribe Rx Request Encounter Details Date Type Department Care Team Description 09/03/2023 Refill Adult Medicine [address] [address] Maggi Silva DO E-prescribe Rx Request Social History Tobacco Use [...] week 06/30/2024 How often do you attend [facility] or latter day services? More than 4 times per year 06/30/2024 Do you belong to any clubs o r organizations such as jainism groups, unions, fraternal or athletic groups, or [...] place to sleep or slept in a care home (including now)? No 06/30/2024 Sex Assigned at Date Recorded Not on file Job Start Date Occupation Industry Not on file Not on file Not on file COVID-19 Exposure Response Date Recorded In the last 10 days, have yo u been in contact with someone who was confirmed or suspected to have Coronavirus/COVID-19? No / Unsure 09/05/2023 8:42 AM EDT documented as of this encounter Miscellaneous Notes * Telephone Encounter - Flaquita Sin - 09/03/2023 2:01 PM EDT Refill on med list Last office visit : 05/16/23 Last time with PCP: s Next office visit : 11/11/23 documented in this encounter Plan of Treatment Not on file documented as of this encounter Visit Diagnoses Not on filedocumented in this encounter Care Teams Financial Brokers Relationship Specialty Start Date End Date Maggi Silva DO PCP - General Internal Medicine 12/05/21 05/17/24 Darcie Caballero MD PCP - General Internal Medicine 05/18/24 [facility]cp PCP - General Internal Medicine 09/07/24 Lorena Burleson MD Specialist Cardiology 05/01/23 documented as of this encounter
--- OUTSIDE RECORDS SUMMARY | 2025-07-28 10:14 | XMS_ITS | Encounter Summary ---
Author Organization [facility] Address [address] [place] [address] Care Team Providers Care Police Communications Dispatcher Name Role Phone Maggi Silva DO Primary Care Provider Unavaila [facility] Lorena Burleson MD Unavailable [phone] Darcie Caballero MD Primary Care Provider Un available Community, Pcp Primary Care Provider Unavailabl e Encounter Details Date Type Department Care Team Description 03/02/2023 Release of Information Medical Records [address] [place] [id number] [place] [address] Social History Tobacco Use Types Packs/Day Years [...] week 06/30/2024 How often do you attend [facility] or buddhism services? More than 4 times per year 06/30/2024 Do you belong to any clubs o r organizations such as voodoo groups, unions, fraternal or athletic groups, or [...] place to sleep or slept in a correction (including now)? No 06/30/2024 Sex Assigned at Date Recorded Not on file Job Start Date Occupation Industry Not on file Not on file Not on file COVID-19 Exposure Response Date Recorded In the last 10 days, have yo u been in contact with someone who was confirmed or suspected to have Coronavirus/COVID-19? No / Unsure 03/01/2023 8:40 AM EDT documented as of this encounter Plan of Treatment Not on file documented as of this encounter Visit Diagnoses Not on filedocumented in this encounter Care Teams Police Communications Dispatcher Relationship Specialty Start Date End Date Maggi Silva DO PCP - General Internal Medicine 12/05/21 05/17/24 Darcie Caballero MD PCP - General Internal Medicine 05/18/24 [facility], Pcp PCP - General Internal Medicine 09/07/24 Lorena Burleson MD Specialist Cardiology 05/01/23 documented as of this encounter
--- OUTSIDE RECORDS SUMMARY | 2025-07-28 10:14 | XMS_ITS | Encounter Summary ---
Author Organization [facility] Address [address] [place] [address] Care Team Providers Care Power Reactor Supervisor Name Role Phone Riddhi Fox MD Primary Care Provider UnavailBouchra Mondragon MD Primary Care Provider Unavailable Maggi Silva DO Primary Care Provider Unavaila Lorena Crabtree MD Unavailable Darcie Caballero MD Primary Care Provider Un available [facility], Pcp Primary Care Provider Unavailabl e Encounter Details Date Type Department Care Team Description 04/28/2020 Orders Only Coumadin Clinic - [address] [address] Riddhi Fox MD Chronic atrial fibrillation; History of mitral valve replacement with mechanical valve Social History Tobacco Use Types Packs/Day Years [...] How often do you attend chur or worship services? More than 4 times per year 06/30/2024 Do you belong to any clubs o r organizations such as restorationist groups, unions, fraternal or athletic groups, or [...] place to sleep or slept in a long term (including now)? No 06/30/2024 Sex Assigned at Date Recorded Not on file Job Start Date Occupation Industry Not on file Not on file Not on file documented as of this encounter Plan of Treatment Not on file documented as of this encounter Procedures Procedure Name Priority Date/Time Associated Diagnosis Comments CHG PROTHROMBIN TIME Routine 04/28/2020 4:04 PM E DT Chronic atrial fibrillation History of mitral valve replacement with mechanical valve documented in this encounter Results * PROTHROMBIN TIME (04/28/2020 4:04 PM EDT) 04/28/2020 4:04 PM EDT Riddhi Fox MD LAB Performing Organization Address City/State/[facility] Co ne Phone Number [facility] documented in this encounter Visit Diagnoses Diagnosis Chronic atrial fibrillation (HCC) Atrial fibrillation History of mitral valve replacement with mechanical valve Heart valve replaced by other means documented in this encounter Care Teams Power Reactor Supervisor Relationship Specialty Start Date End Date Riddhi Fox MD PCP - General 04/01/07 06/26/21 Bouchra Anne MD PCP - General Internal Medicine 06/27/2112/04 Maggi Silva DO PCP - General Internal Medicine 12/05/21 05/17/24 Darcie Caballero MD PCP - General Internal Medicine 05/18/24 Community, Pcp PCP - General Internal Medicine 09/07/24 Lorena Burleson MD Specialist Cardiology 05/01/23 documented as of this encounter
--- OUTSIDE RECORDS SUMMARY | 2025-07-28 10:14 | XMS_ITS | Encounter Summary ---
Author Organization [facility] Address [address] [place] [address] Care Team Providers Care Court Security Officer Name Role Phone Maggi Silva DO Primary Care Provider Unavaila [facility] Lorena Burleson MD Unavailable [phone] Darcie Caballero MD Primary Care Provider Un available Community, Pcp Primary Care Provider Unavailabl e Encounter Details Date Type Department Care Team Description 2023 Release of Information Medical Records [address] [place] [id number] [place] [address] Social History Tobacco Use Types Packs/Day Years [...] week 06/30/2024 How often do you attend [facility] or protestant services? More than 4 times per year 06/30/2024 Do you belong to any clubs o r organizations such as advent groups, unions, fraternal or athletic groups, or [...] place to sleep or slept in a [place] health care facility (including now)? No 06/30/2024 Sex Assigned at Date Recorded Not on file Job Start Date Occupation Industry Not on file Not on file Not on file COVID-19 Exposure Response Date Recorded In the last 10 days, have yo u been in contact with someone who was confirmed or suspected to have Coronavirus/COVID-19? No / Unsure 05/16/2023 8:22 AM EDT documented as of this encounter Plan of Treatment Not on file documented as of this encounter Visit Diagnoses Not on filedocumented in this encounter Care Teams Court Security Officer Relationship Specialty Start Date End Date Maggi Silva DO PCP - General Internal Medicine 12/05/21 05/17/24 Darcie Caballero MD PCP - General Internal Medicine 05/18/24 [facility], Pcp PCP - General Internal Medicine 09/07/24 Lorena Burleson MD Specialist Cardiology 05/01/23 documented as of this encounter
--- OUTSIDE RECORDS SUMMARY | 2025-07-28 10:14 | XMS_ITS | Encounter Summary ---
Author Organization [facility] Address [address] [place] [address] Care Team Providers Care Division Field Inspector Name Role Phone Maggi Silva DO Primary Care Provider Unavaila [facility] Lorena Burleson MD Unavailable Darcie Caballero MD Primary Care Provider Un available Community, Pcp Primary Care Provider Unavailabl e Encounter Details Date Type Department Care Team Description 03/09/2023 Release of Information Medical Records [address] [place] [id number] [place] [address] Social History Tobacco Use Types Packs/Day Years [...] week 06/30/2024 How often do you attend [facility] or rastafari services? More than 4 times per year 06/30/2024 Do you belong to any clubs o r organizations such as taoist groups, unions, fraternal or athletic groups, or [...] place to sleep or slept in a jail (including now)? No 06/30/2024 Sex Assigned at [...] on filedocumented in this encounter Care Teams Division Field Inspector Relationship Specialty Start Date End Date Maggi Silva DO PCP - General Internal Medicine 12/05/21 05/17/24 Darcie Caballero MD PCP - General Internal Medicine 05/18/24 [facility], Pcp PCP - General Internal Medicine 09/07/24 Lorena Burleson MD Specialist Cardiology 05/01/23 documented as of this encounter
--- OUTSIDE RECORDS SUMMARY | 2025-07-28 10:15 | XMS_ITS | Encounter Summary ---
Author Organization [facility] Address [address] [place] [address] Care Team Providers Care Spanish Language Lecturer Name Role Phone Riddhi Fox MD Primary Care Provider Unavaila Agustin Woods MD Primary Care Provider [phone] Bouchra Anne MD Primary Care Provider Unavailable Maggi Silva DO Primary Care Provider Unavaila Lorena Crabtree MD Unavailable [phone] Darcie Caballero MD Primary Care Provider Un available [facility], Pcp Primary Care Provider Unavailabl e Encounter Details Date Type Department Care Team Description 08/08/2005 Orders Only Adult Medicine - [address] [address] Michelle Tejeda ROUTINE GENERAL MEDICAL EXAMINATION AT A HEALTH CARE FACILITY; SCREENING MAL NEOP-PROSTATE Social History Tobacco Use Types Packs/Day Years Used Date Smoking Tobacco: Never Assessed Alcohol Habits Answer Date Recorded How often [...] How often do you attend chur or roman catholic services? More than 4 times per year 06/30/2024 Do you belong to any clubs o r organizations such as anglican groups, unions, fraternal or athletic groups, or [...] as of this encounter Plan of Treatment Scheduled Orders Name Type Priority Associated Diagnoses Orde r Schedule VENIPUNCTURE Lab Routine Screening Mal Neop-Prostate Ordered: 08/08/2005 documented as of this encounter Procedures Procedure Name Priority Date/Time Associated Diagnosis Comments PROSTATE SPEC. AG, SCREEN Routine 08/08/2005 9:15 AM EDT Screening Mal Neop-Prostate [facility] BASIC METABOLIC PANEL CALCIUM TOTAL Routine 08/08/2005 9:15 AM EDT Routine General Medical Examination At A Health Care Facility [facility] URNLS DIP STICK/TABLET REAGENT AUTO MICROSCOPY Routine 08/08/2005 9:15 AM EDT Screening Mal Neop-Prostate [facility] LIPID PANEL Routine 08/08/2005 9:15 AM EDT Routine General Medical Examination At A Health Care Facility documented in this encounter Results * URINALYSIS, COMPLETE (08/08/2005 9:15 AM EDT) GLUCOSE, URINE (UA) NEGATIVE NEGATIVE mg/dL [facility] BILIRUBIN URINE NEGATIVE NEGATIVE [facility] KETONE, URINE NEGATIVE NEGATIVE mg/dL [facility] SPECIFIC GRAVITY, URINE 1.025 1.003 - 1.030 [facility] BLOOD, URINE NEGATIVE NEGATIVE [facility] PH, URINE 5.0 5.0 - 8.0 [facility] PROTEIN, URINE NEGATIVE <= TRACE mg/dl [facility] UROBILINOGEN, URINE 0.2 0.2 - 1.0 E.U./dL [facility] NITRITE,URINE NEGATIVE NEGATIVE [facility] LEUKOCYTE ESTERASE, URINE NEGATIVE NEGATIVE [facility] RBC-Urine 1 0 - 4 /HPF [facility] WBC-Urine 1 0 - 4 /hpf [facility] BACTERIA, URINE LIGHT [facility] 08/08/2005 9:15 AM EDT 08/08/2005 9:27 AM EDT [facility] Performing Organization Address [facility]/ZIP Co de Phone Number [facility] * PROSTATE SPEC. AG, SCREEN (08/08/2005 9:15 AM EDT) PROSTATIC SPECIFIC ANTIGEN SCR 1.7 0.0 - 4.0 ng/mL [facility] 08/08/2005 9:15 AM EDT 08/08/2005 9:27 AM EDT [facility] Performing Organization Address [facility] Co de Phone Number [facility] * (ABNORMAL) LIPID PROFILE (08/08/2005 9:15 AM EDT) Cholesterol 216(H) 0 - 200 mg/dL [facility] TRIGLYCERIDES 119 0 - 150 mg/dL [facility] HDL CHOLESTEROL 56 >40 mg/dL [facility] LDL CALCULATED 137(H) 0 - 100 mg/dL [facility] TC-HDLC RATIO 3.9 0 - 4.4 mg/dL [facility] 08/08/2005 9:15 AM EDT 08/08/2005 9:27 AM EDT [facility] * BASIC METABOLIC PANEL (08/08/2005 9:15 AM EDT) GLUCOSE 98 70 - 110 mg/dL [facility] Blood Urea Nitrogen 15 5 - 25 mg/dL [facility] creatinine 0.9 0.7 - 1.5 mg/dL [facility] Sodium 139 133 - 145 mEq/L [facility] Potassium 4.8 3.5 - 5.2 mEq/L [facility] Chloride 104 96 - 108 mEq/L [facility] CARBON DIOXIDE (CO2) 29.0 21.0 - 32.0 mEq/L [facility] CALCIUM 9.6 8.5 - 10.5 mg/dL [facility] 08/08/2005 9:15 AM EDT 08/08/2005 9:27 AM EDT Michelle Tejeda [facility] documented in this encounter Visit Diagnoses Diagnosis Routine general medical examination at a health care facility Special screening for malignant neoplasm of prostate documented in this encounter Care Teams Spanish Language Lecturer Relationship Specialty Start Date End Date Riddhi Fox MD PCP - General 04/01/07 06/26/21 Agustin Hernandez MD [address] [id number] PCP - General 09/02/03 03/31/07 Bouchra Anne MD [address] [place] [address] PCP - General Internal Medicine 06/27/21 12/04/21 Maggi Silva, [address] [place] [address] PCP - General Internal Medicine 12/05/21 05/17/24 Darcie Caballero MD [address] [place] [address] PCP - General Internal Medicine 05/18/24 09/06/24 [facility], Pcp [address] [place] [address] PCP - General Internal Medicine 09/07/24 Lorena Burleson MD [address] [place] [address] Specialist Cardiology 05/01/23 documented as of this encounter
--- OUTSIDE RECORDS SUMMARY | 2025-07-28 10:15 | XMS_ITS | Encounter Summary ---
Author Organization [facility] Address [address] [place] [address] Care Team Providers Care Research Assoc Name Role Phone Riddhi Fox MD Primary Care Provider UnavailBouchra Mondragon MD Primary Care Provider Unavailable Maggi Silva DO Primary Care Provider Unavaila Lorena Crabtree MD Unavailable [phone] Darcie Caballero MD Primary Care Provider Un available [facility], Pcp Primary Care Provider Unavailabl e Encounter Details Date Type Department Care Team Description 10/06/2020 Orders Only Lab - [place] [address] [place] [id number] Riddhi Fox MD Social History Tobacco Use Types Packs/Day Years [...] How often do you attend chur or nondenominational services? More than 4 times per year 06/30/2024 Do you belong to any clubs o r organizations such as methodist groups, unions, fraternal or athletic groups, or [...] have Coronavirus / COVID-19? No / Unsure 10/05/2020 12:47 PM EST documented as of this encounter Plan of Treatment Not on file documented as of this encounter Visit Diagnoses Not on filedocumented in this encounter Care Teams Research Assoc Relationship Specialty Start Date End Date Riddhi Fox MD PCP - General 04/01/07 06/26/21 Bouchra Anne MD PCP - General Internal Medicine 06/27/2112/04 Maggi Silva DO PCP - General Internal Medicine 12/05/21 05/17/24 Darcie Caballero MD PCP - General Internal Medicine 05/18/24 [facility], Pcp PCP - General Internal Medicine 09/07/24 Lorena Burleson MD Specialist Cardiology 05/01/23 documented as of this encounter
--- OUTSIDE RECORDS SUMMARY | 2025-07-28 10:15 | XMS_ITS | Encounter Summary ---
Author Organization [facility] Address [address] [place] [address] Care Team Providers Care Retouching Operator Name Role Phone Riddhi Fox MD Primary Care Provider UnavailBouchra Mondragon MD Primary Care Provider Unavailable Maggi Silva DO Primary Care Provider Unavaila Lorena Crabtree MD Unavailable [phone] Darcie Caballero MD Primary Care Provider Un available [facility], Pcp Primary Care Provider Unavailabl e Encounter Details Date Type Department Care Team Description 01/27/2008 Hospital Medical Records [address] [place] [address] Joana Walton [address] [place] [id number] Social History Tobacco Use Types Packs/Day Years Used Date Smoking Tobacco: Never Smokeless Tobacco: Never Alcohol Use Standard Drinks/Week Comments Yes 0 (1 standard drink = 0.6 oz pur e alcohol) rarely Alcohol Habits Answer Date Recorded How often [...] 06/30/2024 How often do you attend chur ch or amish services? More than 4 times per year [...] on filedocumented in this encounter Care Teams Retouching Operator Relationship Specialty Start Date End Date Riddhi oFx MD PCP - General 04/01/07 06/26/21 Bouchra Anne MD PCP - General Internal Medicine 06/27/2112/04 Maggi Silva DO PCP - General Internal Medicine 12/05/21 05/17/24 Darcie Caballero MD PCP - General Internal Medicine 05/18/24 [facility], Pcp PCP - General Internal Medicine 09/07/24 Lorena Burleson MD Specialist Cardiology 05/01/23 documented as of this encounter
--- OUTSIDE RECORDS SUMMARY | 2025-07-28 10:15 | XMS_ITS | Encounter Summary ---
Author Organization [facility] Address [address] [place] [address] Care Team Providers Care Printer Helper Name Role Phone Riddhi Fox MD Primary Care Provider UnavailBouchra Mondragon MD Primary Care Provider Unavailable aMggi Silva DO Primary Care Provider Unavaila Lorena Crabtree MD Unavailable [phone] Darcie Caballero MD Primary Care Provider Un available [facility], Pcp Primary Care Provider Unavailabl e Encounter Details Date Type Department Care Team Description 10/27/2010 Director Of Medical Education Report Medical Records [address] [place] [address] Tarik Kohli MD Social History Tobacco Use Types Packs/Day [...] often do you attend chur ch or gnosticist services? More than 4 times per year 06/30/2024 Do you belong to any clubs o r organizations such as sikhism groups, unions, fraternal or athletic groups, or [...] place to sleep or slept in a long-term (including now)? No 06/30/2024 Sex Assigned at Date Recorded Not on file Job Start Date Occupation Industry Not on file Not on file Not on file documented as of this encounter Plan of Treatment Not on file documented as of this encounter Visit Diagnoses Not on filedocumented in this encounter Care Teams Printer Helper Relationship Specialty Start Date End Date Riddhi Fox MD PCP - General 04/01/07 06/26/21 Bouchra Anne MD PCP - General Internal Medicine 06/27/2112/04 Maggi Silva DO PCP - General Internal Medicine 12/05/21 05/17/24 Darcie Caballero MD PCP - General Internal Medicine 05/18/24 [facility], Pcp PCP - General Internal Medicine 09/07/24 Lorena Burleson MD Specialist Cardiology 05/01/23 documented as of this encounter
--- OUTSIDE RECORDS SUMMARY | 2025-07-28 10:15 | XMS_ITS | Encounter Summary ---
Author Organization [facility] Address [address] [place] [address] Care Team Providers Care Superintendent Custodian Janitor Name Role Phone Riddhi Fox MD Primary Care Provider UnavailBouchra Mondragon MD Primary Care Provider Unavailable Maggi Silva DO Primary Care Provider Unavaila Lorena Crabtree MD Unavailable [phone] Darcie Caballero MD Primary Care Provider Un available [facility], Pcp Primary Care Provider Unavailabl e Encounter Details Date Type Department Care Team Description 03/30/2014 Release of Information Medical Records [address] [place] [id number] Abstract, Provider Social History Tobacco Use Types [...] often do you attend chur ch or church services? More than 4 times per year [...] on filedocumented in this encounter Care Teams Superintendent Custodian Janitor Relationship Specialty Start Date End Date Riddhi Fox MD PCP - General 04/01/07 06/26/21 Bouchra Anne MD PCP - General Internal Medicine 06/27/2112/04 Maggi Silva DO PCP - General Internal Medicine 12/05/21 05/17/24 Darcie Caballero MD PCP - General Internal Medicine 05/18/24 [facility], Pcp PCP - General Internal Medicine 09/07/24 Lorena Burleson MD Specialist Cardiology 05/01/23 documented as of this encounter
--- OUTSIDE RECORDS SUMMARY | 2025-07-28 10:15 | XMS_ITS | Encounter Summary ---
Author Organization [facility] Address [address] [place] [address] Care Team Providers Care House Sitter Name Role Phone Riddhi Fox MD Primary Care Provider UnavailBouchra Mondragon MD Primary Care Provider Unavailable Maggi Silva DO Primary Care Provider Unavaila Lorena Crabtree MD Unavailable [phone] Darcie Caballero MD Primary Care Provider Un available [facility], Pcp Primary Care Provider Unavailabl e Encounter Details Date Type Department Care Team Description 03/03/2021 SCAN Medical Records [address] [place] [id number] Abstract, Provider Social History Tobacco Use Types [...] week 06/30/2024 How often do you attend [facility] or pentecostalism services? More than 4 times per year 06/30/2024 Do you belong to any clubs o r organizations such as alevism groups, unions, fraternal or athletic groups, or [...] have Coronavirus / COVID-19? No / Unsure 02/15/2021 11:43 AM EDT documented as of this encounter Plan of Treatment Not on file documented as of this encounter Procedures Procedure Name Priority Date/Time Associated Diagnosis Comments OUTSIDE EKG Routine 03/03/2021 documented in this encounter Results * OUTSIDE EKG (03/03/2021) Provider Default CARDIOLOGY documented in this encounter Visit Diagnoses Not on filedocumented in this encounter Care Teams House Sitter Relationship Specialty Start Date End Date Riddhi Fox MD PCP - General 04/01/07 06/26/21 Bouchra Anne MD PCP - General Internal Medicine 06/27/2112/04 Maggi Silva DO PCP - General Internal Medicine 12/05/21 05/17/24 Darcie Caballero MD PCP - General Internal Medicine 05/18/24 [facility], Pcp PCP - General Internal Medicine 09/07/24 Lorena Burleson MD Specialist Cardiology 05/01/23 documented as of this encounter
--- OUTSIDE RECORDS SUMMARY | 2025-07-28 10:15 | XMS_ITS | Encounter Summary ---
Author Organization [facility] Address [address] [place] [address] Care Team Providers Care Transcribing Machine Operator Name Role Phone Riddhi Fox MD Primary Care Provider UnavailBouchra Mondragon MD Primary Care Provider Unavailable Maggi Silva DO Primary Care Provider Unavaila Lorena Crbatree MD Unavailable [phone] Darcie Caballero MD Primary Care Provider Un available [facility], Pcp Primary Care Provider Unavailabl e Encounter Details Date Type Department Care Team Description 06/07/2018 Release of Information Medical Records [address] [place] [id number] Abstract, Provider Social History Tobacco Use Types [...] 06/30/2024 How often do you attend [facility] or amish services? More than 4 times per year 06/30/2024 Do you belong to any clubs o r organizations such as congregational groups, unions, fraternal or athletic groups, or [...] on filedocumented in this encounter Care Teams Transcribing Machine Operator Relationship Specialty Start Date End Date Riddhi Fox MD PCP - General 04/01/07 06/26/21 Bouchra Anne MD PCP - General Internal Medicine 06/27/2112/04 Maggi Silva DO PCP - General Internal Medicine 12/05/21 05/17/24 Darcie Caballero MD PCP - General Internal Medicine 05/18/24 [facility], Pcp PCP - General Internal Medicine 09/07/24 Lorena Burleson MD Specialist Cardiology 05/01/23 documented as of this encounter
--- OUTSIDE RECORDS SUMMARY | 2025-07-28 10:15 | XMS_ITS | Encounter Summary ---
Author Organization [facility] Address [address] [place] [address] Care Team Providers Care Web Design Instructor Name Role Phone Riddhi Fox MD Primary Care Provider UnavailBouchra Mondragon MD Primary Care Provider Unavailable Maggi Silva DO Primary Care Provider Unavaila Lorena Crabtree MD Unavailable [phone] Darcie Caballero MD Primary Care Provider Un available [facility], Pcp Primary Care Provider Unavailabl e Encounter Details Date Type Department Care Team Description 01/26/2008 Hospital Medical Records [address] [place] [id number] Tarik Kohli MD Social History Tobacco Use [...] How often do you attend chur or hinduism services? More than 4 times per year [...] place to sleep or slept in a residential (including now)? No 06/30/2024 Sex Assigned at Date Recorded Not on file Job Start Date Occupation Industry Not on file Not on file Not on file documented as of this encounter Plan of Treatment Not on file documented as of this encounter Visit Diagnoses Not on filedocumented in this encounter Care Teams Web Design Instructor Relationship Specialty Start Date End Date Riddhi Fox MD PCP - General 04/01/07 06/26/21 Bouchra Anne MD PCP - General Internal Medicine 06/27/2112/04 Maggi Silva DO PCP - General Internal Medicine 12/05/21 05/17/24 Darcie Caballero MD PCP - General Internal Medicine 05/18/24 [facility], Pcp PCP - General Internal Medicine 09/07/24 Lorena Burleson MD Specialist Cardiology 05/01/23 documented as of this encounter
--- OUTSIDE RECORDS SUMMARY | 2025-07-28 10:15 | XMS_ITS | Encounter Summary ---
Author Organization [facility] Address [address] [place] [address] Care Team Providers Care Probation Manager Name Role Phone Riddhi Fox MD Primary Care Provider UnavailBouchra Mondragon MD Primary Care Provider Unavailable Maggi Silva DO Primary Care Provider Unavaila Lorena Crabtree MD Unavailable [phone] Darcie Caballero MD Primary Care Provider Un available [facility], Pcp Primary Care Provider Unavailabl e Encounter Details Date Type Department Care Team Description 01/23/2008 Hospital Medical Records [address] [place] [address] Alyx Reyes Social History Tobacco Use Types Packs/Day Years [...] week 06/30/2024 How often do you attend [facility] or zoroastrian services? More than 4 times per year 06/30/2024 Do you belong to any clubs o r organizations such as samaritan groups, unions, fraternal or athletic groups, or [...] place to sleep or slept in a fpc (including now)? No 06/30/2024 Sex Assigned at Date Recorded Not on file Job Start Date Occupation Industry Not on file Not on file Not on file documented as of this encounter Plan of Treatment Not on file documented as of this encounter Visit Diagnoses Not on filedocumented in this encounter Care Teams Probation Manager Relationship Specialty Start Date End Date Riddhi Fox MD PCP - General 04/01/07 06/26/21 Bouchra Anne MD PCP - General Internal Medicine 06/27/2112/04 Maggi Silva DO PCP - General Internal Medicine 12/05/21 05/17/24 Darcie Caballero MD PCP - General Internal Medicine 05/18/24 [facility], Pcp PCP - General Internal Medicine 09/07/24 Lorena Burleson MD Specialist Cardiology 05/01/23 documented as of this encounter
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
--- OUTSIDE RECORDS SUMMARY | 2025-07-28 10:15 | XMS_ITS | Encounter Summary ---
Author Organization [facility] Address [address] [place] [address] Care Team Providers Care Technology Recruiter Name Role Phone Riddhi Fox MD Primary Care Provider UnavailBouchra Mondragon MD Primary Care Provider Unavailable Maggi Silva DO Primary Care Provider Unavaila Lorena Crabtree MD Unavailable [phone] Darcie Caballero MD Primary Care Provider Un available [facility], Pcp Primary Care Provider Unavailabl e Reason for Visit * Reason Onset Date Comments Orders Call 04/24/2021 Encounter Details Date Type Department Care Team Description 04/24/2021 Telephone Adult [address] [address] Riddhi Fox MD Orders Call Social History Tobacco Use Types Packs/Day Years [...] How often do you attend chur or confucianism services? More than 4 times per year 06/30/2024 Do you belong to any clubs o r organizations such as scientologist groups, unions, fraternal or athletic groups, or [...] have Coronavirus / COVID-19? No / Unsure 04/26/2021 1:14 PM EDT documented as of this encounter Miscellaneous Notes * Telephone Encounter - Danii Bull M.A. - 04/24/2021 4:03 PM EDT Left message on [employer] regarding message below. * Telephone Encounter - Riddhi Fox MD - 04/24/2021 3:13 PM EDT Ordered diabetic lab due. * Telephone Encounter - Nicki Delatorre L.P.N. - 04/24/2021 2:35 PM EDT doyou want to order labs? * Telephone Encounter - Caroline Zaragoza - 04/24/2021 2:11 PM EDT Patient calling to request labs be ordered: What lab work is patient requesting? Any labs due Does patient have an upcoming appointment, if yes when and WITH WHO? yes 04/27/[address] 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 Type II or unspecified type diabetes mellitus with peripheral circulatory disorders, not stated as uncontrolled 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) Type II or unspecified type diabetes mellitus with peripheral circulatory disorders, not stated as uncontrolled documented in this encounter Care Teams Technology Recruiter Relationship Specialty Start Date End Date Riddhi Fox MD PCP - General 04/01/07 06/26/21 Bouchra Anne MD PCP - General Internal Medicine 06/27/2112/04 Maggi Silva DO PCP - General Internal Medicine 12/05/21 05/17/24 Darcie Caballero MD PCP - General Internal Medicine 05/18/24 [facility], [facility] PCP - General Internal Medicine 09/07/24 Lorena Burleson MD Specialist Cardiology 05/01/23 documented as of this encounter
--- OUTSIDE RECORDS SUMMARY | 2025-07-28 10:15 | XMS_ITS | Encounter Summary ---
Author Organization [facility] Address [address] [place] [address] Care Team Providers Care Rn Cardiovascular Icu Name Role Phone Riddhi Fox MD Primary Care Provider UnavailBouchra Mondragon MD Primary Care Provider Unavailable Maggi Silva DO Primary Care Provider Unavaila Lorena Crabtree MD Unavailable [phone] Darcie Caballero MD Primary Care Provider Un available [facility], Pcp Primary Care Provider Unavailabl e Encounter Details Date Type Department Care Team Description 10/03/2016 DOT Physical Forms Medical Records [address] [place] [id number] Abstract, Provider Social History Tobacco Use Types [...] week 06/30/2024 How often do you attend [facility] or uatsdin services? More than 4 times per year 06/30/2024 Do you belong to any clubs o r organizations such as shinto groups, unions, fraternal or athletic groups, or [...] place to sleep or slept in a longterm (including now)? No 06/30/2024 Sex Assigned at Date Recorded Not on file Job Start Date Occupation Industry Not on file Not on file Not on file documented as of this encounter Plan of Treatment Not on file documented as of this encounter Visit Diagnoses Not on filedocumented in this encounter Care Teams Rn Cardiovascular Icu Relationship Specialty Start Date End Date Riddhi Fox MD PCP - General 04/01/07 06/26/21 Bouchra Anne MD PCP - General Internal Medicine 06/27/2112/04 Maggi Silva DO PCP - General Internal Medicine 12/05/21 05/17/24 Darcie Caballero MD PCP - General Internal Medicine 05/18/24 [facility], Pcp PCP - General Internal Medicine 09/07/24 Lorena Burleson MD Specialist Cardiology 05/01/23 documented as of this encounter
--- OUTSIDE RECORDS SUMMARY | 2025-07-28 10:15 | XMS_ITS | Encounter Summary ---
Author Organization [facility] Address [address] [place] [address] Care Team Providers Care Harness Worker Name Role Phone Riddhi Fox MD Primary Care Provider UnavailBouchra Mondragon MD Primary Care Provider Unavailable Maggi Silva DO Primary Care Provider Unavaila Lorena Crabtree MD Unavailable [phone] Darcie Caballero MD Primary Care Provider Un available [facility], Pcp Primary Care Provider Unavailabl e Encounter Details Date Type Department Care Team Description 07/10/2016 Orders Only [facility] - [address] [address] Riddhi Fox MD Encounter for therapeutic drug monitoring; salvage determiner current use of anticoagulant therapy; History of heart valve replacement Social History Tobacco Use Types Packs/Day Years [...] week 06/30/2024 How often do you attend [facility] or confucianist services? More than 4 times per year 06/30/2024 Do you belong to any clubs o r organizations such as judaism groups, unions, fraternal or athletic groups, or [...] as of this encounter Visit Diagnoses Diagnosis Encounter for therapeutic drug monitoring salvage determiner current use of anticoagulant therapy History of heart valve replacement documented in this encounter Care Teams Harness Worker Relationship Specialty Start Date End Date Riddhi Fox MD PCP - General 04/01/07 06/26/21 Bouchra Anne MD PCP - General Internal Medicine 06/27/2112/04 Maggi Silva DO PCP - General Internal Medicine 12/05/21 05/17/24 Darcie Caballero MD PCP - General Internal Medicine 05/18/24 [facility], Pcp PCP - General Internal Medicine 09/07/24 Lorena Burleson MD Specialist Cardiology 05/01/23 documented as of this encounter
== END 2025-07-28 10:32 | disposition home or self-care (01) ==
LOC: HO.HMCFM 09:36
PROVIDERS: PCP Physician Assistant; Visit Provider Physician Assistant
DX: E11.9 Type 2 diabetes mellitus without complications (principal)

== ENCOUNTER → 2025-07-28 09:35 | Outpatient (BNVA) | payer MEDICARE, SELFPAY | PROVIDERS: PCP Physician Assistant; Visit Provider Physician Assistant | DX: E11.9 Type 2 diabetes mellitus without complications (principal); E78.5 Hyperlipidemia, unspecified; I48.91 Unspecified atrial fibrillation; Z95.2 Presence of prosthetic heart valve | CPT/HCPCS: 83036; 99212 ==

== ENCOUNTER 2025-08-12 07:54 | Outpatient (AMB) | payer MEDICARE, SELFPAY ==
--- OUTSIDE RECORDS SUMMARY | 2025-08-12 07:57 | XMS_ITS | Encounter Summary ---
Author Organization [facility] Address [address] [place] [address] Care Team Providers Care Supervisor Core Shop Name Role Phone Riddhi Fox MD Primary Care Provider UnavailBouchra Mondragon MD Primary Care Provider Unavailable Maggi Silva DO Primary Care Provider Unavaila Lorena Crabtree MD Unavailable [phone] Darcie Caballero MD Primary Care Provider Un available [facility], Pcp Primary Care Provider Unavailabl e Encounter Details Date Type Department Care Team Description 01/23/2008 Hospital Medical Records [address] [place] [address] Alyx Reyes Social History Tobacco Use Types [...] often do you attend [facility] or sikhism services? More than 4 times per year 06/30/2024 Do you belong to any clubs o r organizations such as oriental orthodox groups, unions, fraternal or athletic groups, or [...] place to sleep or slept in a nursing home (including now)? No 06/30/2024 Sex Assigned at Date Recorded Not on file Job Start Date Occupation Industry Not on file Not on file Not on file documented as of this encounter Plan of Treatment Not on file documented as of this encounter Visit Diagnoses Not on filedocumented in this encounter Care Teams Supervisor [employer] Shop Relationship Specialty Start Date End Date Riddhi Fox MD PCP - General 04/01/07 06/26/21 Bouchra Anne MD PCP - General Internal Medicine 06/27/2112/04 Maggi Silva DO PCP - General Internal Medicine 12/05/21 05/17/24 Darcie Caballero MD PCP - General Internal Medicine 05/18/24 [facility], Pcp PCP - General Internal Medicine 09/07/24 Lorena Burleson MD Specialist Cardiology 05/01/23 documented as of this encounter
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
--- OUTSIDE RECORDS SUMMARY | 2025-08-12 07:57 | XMS_ITS | Encounter Summary ---
Author Organization [facility] Address [address] [place] [address] Care Team Providers Care Log Turner Name Role Phone Maggi Silva DO Primary Care Provider [facility]av[facility]a [facility] Lorena Burleson MD Unavailable [phone] Darcie Caballero MD Primary Care Provider Un available [facility], Pcp Primary Care Provider Unavailabl e Encounter Details Date Type Department Care Team Description 03/09/2023 Release of Information Medical Records [address] [place] [id number] [place] [address] Social History Tobacco Use Types Packs/Day Years [...] 06/30/2024 How often do you attend [facility] or mormon services? More than 4 times per year [...] on filedocumented in this encounter Care Teams Log Turner Relationship Specialty Start Date End Date Maggi Silva DO PCP - General Internal Medicine 12/05/21 05/17/24 Darcie Caballero MD PCP - General Internal Medicine 05/18/24 [facility], Pcp PCP - General Internal Medicine 09/07/24 Lorena Burleson MD Specialist Cardiology 05/01/23 documented as of this encounter
--- OUTSIDE RECORDS SUMMARY | 2025-08-12 07:57 | XMS_ITS | Encounter Summary ---
Author Organization [facility] Address [address] [place] [address] Care Team Providers Care Inspector Mechanical Name Role Phone Riddhi Fox MD Primary Care Provider UnavailBouchra Mondragon MD Primary Care Provider Unavailable Maggi Silva DO Primary Care Provider Unavaila Lorena Crabtree MD Unavailable [phone] Darcie Caballero MD Primary Care Provider Un available [facility], Pcp Primary Care Provider Unavailabl e Encounter Details Date Type Department Care Team Description 01/27/2008 Hospital Medical Records [address] [place] [address] Joana Walton [address] [place] [address] Social History Tobacco Use Types Packs/Day Years [...] often do you attend chur ch or presybeterian services? More than 4 times per year 06/30/2024 Do you belong to any clubs o r organizations such as confucianist groups, unions, fraternal or athletic groups, or [...] place to sleep or slept in a usp (including now)? No 06/30/2024 Sex Assigned at Date Recorded Not on file Job Start Date Occupation Industry Not on file Not on file Not on file documented as of this encounter Plan of Treatment Not on file documented as of this encounter Visit Diagnoses Not on filedocumented in this encounter Care Teams Inspector Mechanical Relationship Specialty Start Date End Date Riddhi Fox MD PCP - General 04/01/07 06/26/21 Bouchra Anne MD PCP - General Internal Medicine 06/27/2112/04 Maggi Silva DO PCP - General Internal Medicine 12/05/21 05/17/24 Darcie Caballero MD PCP - General Internal Medicine 05/18/24 [facility], Pcp PCP - General Internal Medicine 09/07/24 Lorena Burleson MD Specialist Cardiology 05/01/23 documented as of this encounter
--- OUTSIDE RECORDS SUMMARY | 2025-08-12 07:57 | XMS_ITS | Encounter Summary ---
Author Organization [facility] Address [address] [place] [address] Care Team Providers Care Skilled Helper Name Role Phone Riddhi Fox MD Primary Care Provider UnavailBouchra Mondragon MD Primary Care Provider Unavailable Maggi Silva DO Primary Care Provider Unavaila Lorena Crabtree MD Unavailable [phone] Darcie Caballero MD Primary Care Provider Un available [facility], Pcp Primary Care Provider Unavailabl e Encounter Details Date Type Department Care Team Description 01/23/2008 Hospital Medical Records [address] [place] [address] Joana Castelan PA-C [address] [place] [address] Social History Tobacco Use Types Packs/Day Years [...] How often do you attend chur or druze services? More than 4 times per year [...] Name Priority Date/Time Associated Diagnosis Comments OUTSIDE PLAIN FILM Routine 02/02/2008 OUTSIDE BARIUM SWALLOW Routine 01/29/2008 OUTSIDE ECHO Routine 01/25/2008 OUTSIDE ECHO Routine 01/23/[address] Routine 01/22/2008 OUTSIDE PLAIN FILM Routine 01/22/2008 documented in this encounter Results * OUTSIDE PLAIN FILM (02/02/2008) Provider Default RADIOLOGY * OUTSIDE BARIUM SWALLOW (01/29/2008) Provider Default RADIOLOGY * OUTSIDE ECHO (01/25/2008) Provider Default CARDIOLOGY * OUTSIDE ECHO (01/23/2008) Provider Default CARDIOLOGY * OUTSIDE CT (01/22/2008) Provider Default RADIOLOGY * OUTSIDE PLAIN FILM (01/22/2008) Provider Default RADIOLOGY documented in this encounter Visit Diagnoses Not on filedocumented in this encounter Care Teams Skilled Helper Relationship Specialty Start Date End Date Riddhi Fox MD PCP - General 04/01/07 06/26/21 Bouchra Anne MD PCP - General Internal Medicine 06/27/2112/04 Maggi Silva DO PCP - General Internal Medicine 12/05/21 05/17/24 Darcie Caballero MD PCP - General Internal Medicine 05/18/24 [facility], Pcp PCP - General Internal Medicine 09/07/24 Lorena Burleson MD Specialist Cardiology 05/01/23 documented as of this encounter
--- OUTSIDE RECORDS SUMMARY | 2025-08-12 07:57 | XMS_ITS | Encounter Summary ---
Author Organization [facility] Address [address] [place] [address] Care Team Providers Care Wood Hacker Name Role Phone Maggi Silva DO Primary Care Provider Unavaila [facility] Lorena Burleson MD Unavailable [phone] Darcie Caballero MD Primary Care Provider Un available [facility], Pcp Primary Care Provider Unavailabl e Reason for Visit * Reason Comments E-prescribe Rx Request Encounter Details Date Type Department Care Team Description 09/03/2023 Refill Adult Medicine [address] [address] Maggi Silva DO E-prescribe Rx Request Social [...] week 06/30/2024 How often do you attend [facility] or gnosticism services? More than 4 times per year 06/30/2024 Do you belong to any clubs o r organizations such as taoism groups, unions, fraternal or athletic groups, or [...] place to sleep or slept in a halfway (including now)? No 06/30/2024 Sex Assigned at [...] on filedocumented in this encounter Care Teams Wood Hacker Relationship Specialty Start Date End Date Maggi Silva DO PCP - General Internal Medicine 12/05/21 05/17/24 Darcie Caballero MD PCP - General Internal Medicine 05/18/24 [facility], Pcp PCP - General Internal Medicine 09/07/24 Lorena Burleson MD Specialist Cardiology 05/01/23 documented as of this encounter
--- OUTSIDE RECORDS SUMMARY | 2025-08-12 07:57 | XMS_ITS | Encounter Summary ---
Author Organization [facility] Address [address] [place] [address] Care Team Providers Care Professor Of Geology Name Role Phone Riddhi Fox MD Primary Care Provider UnavailBouchra Mondragon MD Primary Care Provider Unavailable Maggi Silva DO Primary Care Provider Unavaila Lorena Crabtree MD Unavailable [phone] Darcie Caballero MD Primary Care Provider Un available [facility], Pcp Primary Care Provider Unavailabl e Encounter Details Date Type Department Care Team Description 02/04/2008 Hospital Medical Records [address] [place] [address] Yamila Lozano APRN Social History Tobacco Use Types Packs/Day Years [...] week 06/30/2024 How often do you attend [facility] or pentecostal services? More than 4 times per year 06/30/2024 Do you belong to any clubs o r organizations such as uatsdin groups, unions, fraternal or athletic groups, or [...] on filedocumented in this encounter Care Teams Professor Of Geology Relationship Specialty Start Date End Date Riddhi Fox MD PCP - General 04/01/07 06/26/21 Bouchra Anne MD PCP - General Internal Medicine 06/27/2112/04 Maggi Silva DO PCP - General Internal Medicine 12/05/21 05/17/24 Darcie Caballero MD PCP - General Internal Medicine 05/18/24 [facility], Pcp PCP - General Internal Medicine 09/07/24 Lorena Burleson MD Specialist Cardiology 05/01/23 documented as of this encounter
--- OUTSIDE RECORDS SUMMARY | 2025-08-12 07:57 | XMS_ITS | Encounter Summary ---
Author Organization [facility] Address [address] [place] [address] Care Team Providers Care Hold Worker Name Role Phone Riddhi Fox MD Primary Care Provider Unavaila Agustin Woods MD Primary Care Provider [phone] Bouchra Anne MD Primary Care Provider Unavailable Maggi Silva DO Primary Care Provider Unavaila Lorena Crabtree MD Unavailable Darcie Caballero MD Primary Care Provider Un available [facility], Pcp Primary Care Provider Unavailabl e Encounter Details Date Type Department Care Team Description 08/08/2005 Orders Only Adult Medicine - [address] [address] Michelle Tejeda ROUTINE GENERAL MEDICAL EXAMINATION AT [...] How often do you attend chur or jehovah's witness services? More than 4 times per year 06/30/2024 Do you belong to any clubs o r organizations such as roman catholic groups, unions, fraternal or athletic groups, or [...] 08/08/2005 9:15 AM EDT Screening [facility] Neop-Prostate [facility] BASIC METABOLIC PANEL CALCIUM TOTAL Routine 08/08/2005 9:15 AM EDT Routine General Medical Examination At A Health Care Facility [facility] URNLS DIP STICK/TABLET REAGENT AUTO MICROSCOPY Routine 08/08/2005 9:15 AM EDT Screening [facility]-Prostate [facility] LIPID PANEL Routine 08/08/2005 9:15 AM EDT [...] 9:15 AM EDT 08/08/2005 9:27 AM EDT [facility] Performing Organization Address [facility]/ZIP Co de Phone Number [facility] * PROSTATE SPEC. AG, SCREEN (08/08/2005 9:15 AM EDT) PROSTATIC SPECIFIC ANTIGEN SCR 1.7 0.0 - 4.0 ng/mL [facility] 08/08/2005 9:15 AM EDT 08/08/2005 9:27 AM EDT [facility] Performing Organization Address [facility] Co de Phone Number [facility] * (ABNORMAL) LIPID PROFILE (08/08/2005 9:15 AM EDT) Cholesterol 216(H) 0 - 200 mg/dL [facility] TRIGLYCERIDES 119 0 - 150 mg/dL [facility] HDL CHOLESTEROL 56 >40 mg/dL [facility] LDL CALCULATED 137(H) 0 - 100 mg/dL [facility] TC-HDLC RATIO 3.9 0 - 4.4 mg/dL [facility] 08/08/2005 9:15 AM EDT 08/08/2005 9:27 AM EDT [facility] * BASIC METABOLIC PANEL (08/08/2005 9:15 AM [...] prostate documented in this encounter Care Teams Hold Worker Relationship Specialty Start Date End Date Riddhi Fox MD PCP - General 04/01/07 06/26/21 Agustin Hernandez MD [address] [id number] PCP - General 09/02/03 03/31/07 Bouchra Anne MD [address] [place] [address] PCP - General Internal Medicine 06/27/21 12/04/21 Maggi Silva, [address] [place] [address] PCP - General Internal Medicine 12/05/21 05/17/24 Darcie Caballero MD [address] [place] [address] PCP - General Internal Medicine 05/18/24 09/06/24 [facility], Pcp [address] [place] [address] PCP - General Internal Medicine 09/07/24 Lorena Burleson MD [address] [place] [address] Specialist Cardiology 05/01/23 documented as of this encounter
--- OUTSIDE RECORDS SUMMARY | 2025-08-12 07:57 | XMS_ITS | Encounter Summary ---
Author Organization [facility] Address [address] [place] [address] Care Team Providers Care Supervisor Briar Shop Name Role Phone Riddhi Fox MD Primary Care Provider UnavailBouchra Mondragon MD Primary Care Provider Unavailable Maggi Silva DO Primary Care Provider Unavaila Lorena Crabtree MD Unavailable [phone] Darcie Caballero MD Primary Care Provider Un available [facility], Pcp Primary Care Provider Unavailabl e Encounter Details Date Type Department Care Team Description 10/04/2016 Orders Only Adult Medicine - [address] [address] Bandar Sesay PA-C Elevated blood sugar (Primary Dx) Social History Tobacco Use Types Packs/Day Years [...] often do you attend chur ch or mormonism services? More than 4 times per year 06/30/2024 Do you belong to any clubs o r organizations such as mu-ism groups, unions, fraternal or athletic groups, or [...] this encounter Results * (ABNORMAL) HEMOGLOBIN A1C (10/04/2016 2:12 PM EDT) Glycosylated Hemoglobin A1C 6.7(H) 4.0 - 6.0 % 10/05/2016 12:17 PM EDT [employer] Comment: HbA1C VALUES MAY NOT ACCURATELY REFLECT MEAN BLOOD GLUCOSE IN PATIENTS WITH HEMOGLOBIN VARIANTS SUCH HbF, HbS. 10/04/2016 2:12 PM EDT 10/04/2016 2:13 PM EDT Bandar Sesay PA-C LAB [place] [id number] [facility] documented in this encounter Visit Diagnoses Diagnosis Elevated blood sugar- Primary Other abnormal glucose documented in this encounter Care Teams Supervisor Briar Shop Relationship Specialty Start Date End Date Riddhi Fox MD PCP - General 04/01/07 06/26/21 Bouchra Anne MD PCP - General Internal Medicine 06/27/2112/04 Maggi Silva DO PCP - General Internal Medicine 12/05/21 05/17/24 Darcie Caballero MD PCP - General Internal Medicine 05/18/24 [facility], Pcp PCP - General Internal Medicine 09/07/24 Lorena Burleson MD Specialist Cardiology 05/01/23 documented as of this encounter
--- OUTSIDE RECORDS SUMMARY | 2025-08-12 07:57 | XMS_ITS | Encounter Summary ---
Author Organization [facility] Address [address] [place] [address] Care Team Providers Care Seat Installer Name Role Phone Maggi Silva DO Primary Care Provider Unavaila [facility] Lorena Burleson MD Unavailable [phone] Darcie Caballero MD Primary Care Provider Un available [facility], Pcp Primary Care Provider Unavailabl e Encounter Details Date Type Department Care Team Description 01/28/2023 Telephone Adult [facility] - [address] [address] Maggi Silva DO Social History Tobacco Use Types Packs/Day Years [...] How often do you attend [facility] or shinto services? More than 4 times per year 06/30/2024 Do you belong to any clubs o r organizations such as zoroastrianism groups, unions, fraternal or athletic groups, or [...] suspected to have Coronavirus/COVID-19? No / Unsure 01/25/2023 8:48 AM EST documented as of this encounter Miscellaneous Notes * Telephone Encounter - Ebonie Horner - 01/28/2023 11:06 AM EST Patient is aware of the message. Labs are stable * Telephone Encounter - Danii Bull M.A. - 01/28/2023 9:47 AM EST ----- Message from Maggi Silva DO sent at 01/25/2023 5:31 PM EST ----- Labs reviewed, stable documented in this encounter Plan of Treatment Not on file documented as of this encounter Visit Diagnoses Not on filedocumented in this encounter Care Teams Seat Installer Relationship Specialty Start Date End Date Maggi Silva DO PCP - General Internal Medicine 12/05/21 05/17/24 Darcie Caballero MD PCP - General Internal Medicine 05/18/24 [facility], Pcp PCP - General Internal Medicine 09/07/24 Lorena Burleson MD Specialist Cardiology 05/01/23 documented as of this encounter
--- OUTSIDE RECORDS SUMMARY | 2025-08-12 07:57 | XMS_ITS | Encounter Summary ---
Author Organization [facility] Address [address] [place] [address] Care Team Providers Care Activity Aid Name Role Phone Riddhi Fox MD Primary Care Provider UnavailBouchra Mondragon MD Primary Care Provider Unavailable Maggi Silva DO Primary Care Provider Unavaila Lorena Crabtree MD Unavailable [phone] Darcie Caballero MD Primary Care Provider Un available [facility], Pcp Primary Care Provider Unavailabl e Encounter Details Date Type Department Care Team Description 01/26/2008 Hospital Medical Records [address] [place] [address] Tarik Kohli MD Social History Tobacco Use [...] How often do you attend chur or yarsanism services? More than 4 times per year 06/30/2024 Do you belong to any clubs o r organizations such as sabianism groups, unions, fraternal or athletic groups, or [...] on filedocumented in this encounter Care Teams Activity Aid Relationship Specialty Start Date End Date Riddhi Fox MD PCP - General 04/01/07 06/26/21 Bouchra Anne MD PCP - General Internal Medicine 06/27/2112/04 Maggi Silva DO PCP - General Internal Medicine 12/05/21 05/17/24 Darcie Caballero MD PCP - General Internal Medicine 05/18/24 [facility], Pcp PCP - General Internal Medicine 09/07/24 Lorena Burleson MD Specialist Cardiology 05/01/23 documented as of this encounter
--- OUTSIDE RECORDS SUMMARY | 2025-08-12 07:57 | XMS_ITS | Encounter Summary ---
Author Organization [facility] Address [address] [place] [address] Care Team Providers Care Interior Horticulturist Name Role Phone Maggi Silva DO Primary Care Provider Unavaila [facility] Lorena Burleson MD Unavailable [phone] Darcie Caballero MD Primary Care Provider Un available [facility], Pcp Primary Care Provider Unavailabl e Reason for Visit * Reason Comments E-prescribe Rx Request Encounter Details Date Type Department Care Team Description 08/24/2022 Refill Adult Medicine [address] [address] Sharon Shields PA-C E-prescribe Rx Request Social [...] How often do you attend chur or cheondoism services? More than 4 times per year 06/30/2024 Do you belong to any clubs o r organizations such as gnosticist groups, unions, fraternal or athletic groups, or [...] uncontrolled documented in this encounter Care Teams Interior Horticulturist Relationship Specialty Start Date End Date Maggi Silva DO PCP - General Internal Medicine 12/05/21 05/17/24 Darcie Caballero MD PCP - General Internal Medicine 05/18/24 [facility], Pcp PCP - General Internal Medicine 09/07/24 Lorena Burleson MD Specialist Cardiology 05/01/23 documented as of this encounter
--- OUTSIDE RECORDS SUMMARY | 2025-08-12 07:57 | XMS_ITS | Encounter Summary ---
Author Organization [facility] Address [address] [place] [address] Care Team Providers Care Composition Teacher Name Role Phone Riddhi Fox MD Primary Care Provider UnavailBouchra Mondragon MD Primary Care Provider Unavailable Maggi Silva DO Primary Care Provider Unavaila Lroena Crabtree MD Unavailable [phone] Darcie Caballero MD Primary Care Provider Un available [facility], Pcp Primary Care Provider Unavailabl e Encounter Details Date Type Department Care Team Description 03/03/2008 [facility] Medical Records [address] [place] [address] Abstract, Provider Social History Tobacco Use Types [...] 06/30/2024 How often do you attend [facility] or roman catholic services? More than 4 [...] on filedocumented in this encounter Care Teams Composition Teacher Relationship Specialty Start Date End Date Riddhi Fox MD PCP - General 04/01/07 06/26/21 Bouchra Anne MD PCP - General Internal Medicine 06/27/2112/04 Maggi Silva DO PCP - General Internal Medicine 12/05/21 05/17/24 Darcie Caballero MD PCP - General Internal Medicine 05/18/24 [facility], Pcp PCP - General Internal Medicine 09/07/24 Lorena Burleson MD Specialist Cardiology 05/01/23 documented as of this encounter
--- OUTSIDE RECORDS SUMMARY | 2025-08-12 07:57 | XMS_ITS | Encounter Summary ---
Author Organization [facility] Address [address] [place] [address] Care Team Providers Care Police Magistrate Name Role Phone Maggi Silva DO Primary Care Provider Unavaila [facility] Lorena Burleson MD Unavailable [phone] Darcie Caballero MD Primary Care Provider Un available [facility], Pcp Primary Care Provider Unavailabl e Encounter Details Date Type Department Care Team Description 07/29/2023 [facility] Medical Records [address] [place], [place] [id number] [place] [address] Social History Tobacco Use Types Packs/Day Years [...] [facility] or scientologist services? More than 4 times per year [...] filedocumented in this encounter Care Teams Police Magistrate Relationship Specialty Start Date End Date Maggi Silva DO PCP - General Internal Medicine 12/05/21 05/17/24 Darcie Caballero MD PCP - General Internal Medicine 05/18/24 [facility], Pcp PCP - General Internal Medicine 09/07/24 Lorena Burleson MD Specialist Cardiology 05/01/23 documented as of this encounter
--- OUTSIDE RECORDS SUMMARY | 2025-08-12 07:58 | XMS_ITS | Encounter Summary ---
Author Organization [facility] Address [address] [place] [address] Care Team Providers Care Horse Racing Analyst Name Role Phone Riddhi Fox MD Primary Care Provider UnavailBouchra Mondragon MD Primary Care Provider Unavailable Maggi Silva DO Primary Care Provider Unavaila Lorena Crabtree MD Unavailable [phone] Darcie Caballero MD Primary Care Provider Un available [facility], Pcp Primary Care Provider Unavailabl e Encounter Details Date Type Department Care Team Description 07/10/2016 Orders Only Coumadin Clinic - [address] [address] Riddhi Fox MD Encounter for therapeutic drug monitoring; residential current use of anticoagulant therapy; History of [...] week 06/30/2024 How often do you attend [facility] or tenriism services? More than 4 times per year [...] Diagnoses Diagnosis Encounter for therapeutic drug monitoring outside medical sales representative current use of anticoagulant therapy History of heart valve replacement documented in this encounter Care Teams Horse Racing Analyst Relationship Specialty Start Date End Date Riddhi Fox MD PCP - General 04/01/07 06/26/21 Bouchra Anne MD PCP - General Internal Medicine 06/27/2112/04 Maggi Silva DO PCP - General Internal Medicine 12/05/21 05/17/24 Darcie Caballero MD PCP - General Internal Medicine 05/18/24 [facility], Pcp PCP - General Internal Medicine 09/07/24 Lorena Burleson MD Specialist Cardiology 05/01/23 documented as of this encounter
--- OUTSIDE RECORDS SUMMARY | 2025-08-12 07:58 | XMS_ITS | Encounter Summary ---
Author Organization [facility] Address [address] [place] [address] Care Team Providers Care Evidence Custodian Name Role Phone Riddhi Fox MD Primary Care Provider UnavailBouchra Mondragon MD Primary Care Provider Unavailable Maggi Silva DO Primary Care Provider Unavaila Lorena Crabtree MD Unavailable [phone] Darcie Caballero MD Primary Care Provider Un available [facility], Pcp Primary Care Provider Unavailabl e Encounter Details Date Type Department Care Team Description 03/03/2021 [facility] Medical Records [address] [place] [id number] Abstract, Provider Social History Tobacco Use Types [...] How often do you attend [facility] or denominational services? More than 4 times per year 06/30/2024 Do you belong to any clubs o r organizations such as cheondoism groups, unions, fraternal or athletic groups, or [...] place to sleep or slept in a prison (including now)? No 06/30/2024 Sex Assigned at [...] on filedocumented in this encounter Care Teams Evidence Custodian Relationship Specialty Start Date End Date Riddhi Fox MD PCP - General 04/01/07 06/26/21 Bouchra Anne MD PCP - General Internal Medicine 06/27/2112/04 Maggi Silva DO PCP - General Internal Medicine 12/05/21 05/17/24 Darcie Caballero MD PCP - General Internal Medicine 05/18/24 [facility], Pcp PCP - General Internal Medicine 09/07/24 Lorena Burleson MD Specialist Cardiology 05/01/23 documented as of this encounter
--- OUTSIDE RECORDS SUMMARY | 2025-08-12 07:58 | XMS_ITS | Encounter Summary ---
Author Organization [facility] Address [address] [place] [address] Care Team Providers Care Engineer Second Assistant Name Role Phone Riddhi Fox MD Primary Care Provider UnavailBouchra Mondragon MD Primary Care Provider Unavailable Maggi Silva DO Primary Care Provider Unavaila Lorena Crabtree MD Unavailable [phone] Darcie Caballero MD Primary Care Provider Un available [facility], Pcp Primary Care Provider Unavailabl e Encounter Details Date Type Department Care Team Description 10/27/2010 Utilization Reviewer Report Medical Records [address] [place] [address] Tarik Kohli MD Social History Tobacco Use [...] often do you attend chur ch or yarsani services? More than 4 times per year 06/30/2024 Do you belong to any clubs o r organizations such as evangelical groups, unions, fraternal or athletic groups, or [...] on filedocumented in this encounter Care Teams Engineer Second Assistant Relationship Specialty Start Date End Date Riddhi Fox MD PCP - General 04/01/07 06/26/21 Bouchra Anne MD PCP - General Internal Medicine 06/27/2112/04 Maggi Silva DO PCP - General Internal Medicine 12/05/21 05/17/24 Darcie Caballero MD PCP - General Internal Medicine 05/18/24 [facility], Pcp PCP - General Internal Medicine 09/07/24 Lorena Burleson MD Specialist Cardiology 05/01/23 documented as of this encounter
--- OUTSIDE RECORDS SUMMARY | 2025-08-12 07:58 | XMS_ITS | Encounter Summary ---
Author Organization [facility] Address [address] [place] [address] Care Team Providers Care Joint Supervisor Name Role Phone Riddhi Fox MD Primary Care Provider UnavailBouchra Mondragon MD Primary Care Provider Unavailable Maggi Silva DO Primary Care Provider Unavaila Lorena Crabtree MD Unavailable Darcie Caballero MD Primary Care Provider Un available [facility], Pcp Primary Care Provider Unavailabl e Encounter Details Date Type Department Care Team Description 10/31/2015 Wellness Visit Medical Records [address] [place] [id number] Riddhi Fox MD Social History Tobacco Use [...] often do you attend chur ch or advent services? More than 4 times per year [...] place to sleep or slept in a half-way (including now)? No 06/30/2024 Sex Assigned at Date Recorded Not on file Job Start Date Occupation Industry Not on file Not on file Not on file documented as of this encounter Plan of Treatment Not on file documented as of this encounter Visit Diagnoses Not on filedocumented in this encounter Care Teams Joint Supervisor Relationship Specialty Start Date End Date Riddhi Fox MD PCP - General 04/01/07 06/26/21 Bouchra Anne MD PCP - General Internal Medicine 06/27/2112/04 Maggi Silva DO PCP - General Internal Medicine 12/05/21 05/17/24 Darcie Caballero MD PCP - General Internal Medicine 05/18/24 [facility]ly [facility], Pcp PCP - General Internal Medicine 09/07/24 Lorena Burleson MD Specialist Cardiology 05/01/23 documented as of this encounter
--- OUTSIDE RECORDS SUMMARY | 2025-08-12 07:58 | XMS_ITS | Encounter Summary ---
Author Organization [facility] Address [address] [place] [address] Care Team Providers Care Residential Director Name Role Phone Riddhi Fox MD Primary Care Provider UnavailBouchra Mondragon MD Primary Care Provider Unavailable Maggi Silva DO Primary Care Provider Unavaila Lorena Crabtree MD Unavailable [phone] Darcie Caballero MD Primary Care Provider Un available [facility], Pcp Primary Care Provider Unavailabl e Encounter Details Date Type Department Care Team Description 03/04/2014 Business Doc Medical Records [address] [place] [id number] Abstract, Provider Social History Tobacco Use Types [...] often do you attend chur ch or scientology services? More than 4 times per year 06/30/2024 Do you belong to any clubs o r organizations such as pentecostal groups, unions, fraternal or athletic groups, or [...] to sleep or slept in a senior care (including now)? No 06/30/2024 Sex Assigned at Date Recorded Not on file Job Start Date Occupation Industry Not on file Not on file Not on file documented as of this encounter Plan of Treatment Not on file documented as of this encounter Visit Diagnoses Not on filedocumented in this encounter Care Teams Residential Director Relationship Specialty Start Date End Date Riddhi [...]
[2025-08-12 08:03] LABS: Prothrombin Time Whole Bld POC 40.8 sec (11.1-13.5); ~PT, ~INR - Anti Coag Clinic 3.4 (0.9-1.1)
--- NOTE | 2025-08-12 08:09 | MHC.OFFVISCO ---
Intake Intake Visit Reasons: Anticoagulation Allergies tetracycline Allergy (Unknown, Verified 08/12/25 07:58) Unknown Medication List - Last Reconciled 08/12/25 by Lawanda Cabrera RN atorvastatin 40 mg PO DAILY warfarin 5 mg See Protocol PO DAILY Nursing Note INR: 3.4 in therapeutic range of of 2.5-3.5 Medications and supplements reviewed No changes in health, diet, medications, or supplements, Denies any signs and symptoms of bleeding or bruising or clotting. 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 Illness/Depression: No Coding Level of Care Code Est Patient Level 1 Diagnoses Current use of anticoagulant therapy Z79.01 Results AMB INR Fingerstick AMB INR Fingerstick 3.4 Last Edit by Lawanda Cabrera RN on 08/12/25 08:04 interface delay Assessment & Plan Assessment & Plan (1) Current use of anticoagulant therapy: Code(s): Z79.01 - care home (current) use of 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 Category: Medical
== END 2025-08-12 08:11 | disposition home or self-care (01) ==
LOC: HO.ACS 07:54
PROVIDERS: PCP Physician Assistant; Visit Provider Internal Medicine Medical Oncology
DX: Z79.01 Long term (current) use of 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 (principal)

== ENCOUNTER → 2025-08-12 07:54 | Outpatient (BNVA) | payer MEDICARE, SELFPAY | PROVIDERS: PCP Physician Assistant; Visit Provider Internal Medicine Medical Oncology | DX: Z51.81 Encounter for therapeutic drug level monitoring (principal); Z79.01 Long term (current) use of 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 | CPT/HCPCS: 85610; 99211 ==

== ENCOUNTER 2025-09-09 08:56 | Outpatient (AMB) | payer MEDICARE, SELFPAY ==
[2025-09-09 09:54] LABS: Prothrombin Time Whole Bld POC 34.0 sec (11.1-13.5); ~PT, ~INR - Anti Coag Clinic 2.8 (0.9-1.1)
--- NOTE | 2025-09-09 12:08 | MHC.OFFVISCO ---
Intake Intake Visit Reasons: Anticoagulation Allergies tetracycline Allergy (Unknown, Verified 09/09/25 10:17) Unknown Medication List - Last Reconciled 09/09/25 by Lawanda Cabrera, TRICE atorvastatin 40 mg PO DAILY warfarin 5 mg See Protocol PO DAILY Nursing Note Pt to ACS for meter training. Reviewed how the meter works and how to perform an INR test. Error codes reviewed and how to troubleshoot. Pt performed the INR test X 2 with good technique. INR 2.9, then 3.1. INR done on ACS meter and result was 2.8. Pt asked appropriate questions and had the [employer] hans on his phone. [employer] phone number given to pt for technical help if needed. Five question quiz completed and pt was able to answer all correctly. Dose: 5mg daily Retest: 09/16/25 Anti-Coag Initial Assessment Social Hx Patient Tobacco Use Status: Never used Tobacco alcohol intake: former Alcohol intake frequency: does not drink Cardiovascular Hx: Arrhythmias and Other Endocrine Hx: Diabetes Musculoskeletal Hx: Arthritis Blood Disorder Hx: Hyperlipidemia Cancer HX: No Psych. Illness/Depression: No Coding Level of Care Code G0248 Demo Use Home INR Diagnoses Current use of anticoagulant therapy Z79.01 Time Spent (min) 60 Comment meter training completed Assessment & Plan Assessment & Plan (1) Current use of anticoagulant therapy: Code(s): Z79.01 - petroleum terminal plant operator (current) use of 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 Category: Medical
== END 2025-09-09 10:49 | disposition home or self-care (01) ==
LOC: HO.ACS 08:56
PROVIDERS: PCP Physician Assistant; Visit Provider Internal Medicine Medical Oncology
DX: Z79.01 Long term (current) use of 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 (principal)

== ENCOUNTER → 2025-09-09 08:56 | Outpatient (BNVA) | payer MEDICARE, SELFPAY | PROVIDERS: PCP Physician Assistant; Visit Provider Internal Medicine Medical Oncology | DX: Z51.81 Encounter for therapeutic drug level monitoring (principal); Z79.01 Long term (current) use of 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 | CPT/HCPCS: 85610; G0248 ==

== ENCOUNTER 2025-11-08 09:04 | Outpatient (REF) | payer MEDICARE, SELFPAY ==
[2025-11-08 11:30] LABS: MANUAL DIFF FLAG NO
[2025-11-08 11:55] LABS: Hematocrit 42.5 % (42.0-52.0); Hemoglobin 13.7 g/dl (14.0-18.0); Imm Gran Abs Auto 0.01 X10*3/uL (0.00-0.03); Imm Gran Pct Auto 0.2 % (0.0-0.4); Lymphocytes Absolute Auto 1.0 X10*3/uL (1.2-4.9); Mean Corpuscular HGB Conc 32.2 g/dl (31.0-36.0); Mean Corpuscular Hemoglobin 27.7 pg (27.0-33.0); Mean Corpuscular Volume 85.9 fL (80.0-98.0); NRBC Abs Auto 0.000 X10*3/uL (0.0-0.012); NRBC Pct Auto 0.0 /100WBC (0.0-0.2); Platelet Count 201 X10*3/uL (160-400); Red Blood Count 4.95 X10*6/uL (4.60-5.80); White Blood Count 4.5 X10*3/uL (4.8-10.8)
[2025-11-08 12:14] LABS: Microalbum/Creatinine Ratio Ur 13.7 ug/mg cr (<30)
[2025-11-08 12:42] LABS: Alanine Aminotransferase 27 U/L (0-40); Albumin Level 4.1 g/dL (3.5-5.0); Alkaline Phosphatase 82 U/L (39-117); Anion Gap 8 (12-20); Aspartate Amino Transferase 32 U/L (5-37); Blood Urea Nitrogen 19 mg/dL (9-16); Calcium 9.2 mg/dL (8.4-10.2); Carbon Dioxide 29 mmol/L (22-29); Chloride 107 mmol/L (96-108); Cholesterol 159 mg/dL (<200); Estimated Glomerular Filt Rate > 60; HDL Cholesterol 39 mg/dL (>40); Potassium 4.7 mmol/L (3.3-5.1); Sodium 139 mmol/L (135-145); Total Protein 7.1 g/dL (6.5-8.0); Triglycerides 95 mg/dL (<150)
== END 2025-11-08 09:05 | disposition home or self-care (01) ==
LOC: HO.WFDLDS 09:04
PROVIDERS: Visit Provider Physician Assistant
DX: E78.5 Hyperlipidemia, unspecified (principal); Z95.2 Presence of prosthetic heart valve; I48.91 Unspecified atrial fibrillation; E11.9 Type 2 diabetes mellitus without complications
CPT/HCPCS: 36415; 80053; 80061; 82043; 82570; 83036; 84443; 85025

== ENCOUNTER 2025-11-09 08:40 | Outpatient (AMB) | payer MEDICARE, SELFPAY ==
[2025-11-09 08:44] VITALS: BP 128/68; PULSE 75; RESP 14; TEMP 36.5; O2SAT 98; BMI 21.2
--- NOTE | 2025-11-09 08:44 | A.OFFPC_ITS ---
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 Hand Required: No Allergies tetracycline Allergy (Unknown, Verified 11/09/25 08:46) Unknown Medication List - Last Reconciled 11/09/25 by Monse Chu PA-C amoxicillin 2,000 mg PO atorvastatin 40 mg PO DAILY warfarin 5 mg See Protocol PO DAILY Tobacco use date assessed: 11/09/25 Fall risk assessment: 1 Fall in past year Last assessed Fall Risk: 11/09/25 Dental Screening Dental Screen Date: 03/24/25 HPI dm 3-4 months HPI Details Patient is a 75-year-old male with a significant past medical history of controlled type 2 diabetes, ED, hyperlipidemia, AFib, history of mitral valve replacement, glaucoma presenting today for a follow up. -no acute concerns today. CV: Blood pressure today in the office is 128/68. He is not on any antihypertensives. He is anticoagulated on Coumadin. Cholesterol is managed with atorvastatin. Mitral valve replacement was 2018 at [facility] with past history of bacterial endocarditis. He is following with [facility].. He follows with cardiology and has annual echo. He follows with the anticoagulation clinic. Endo: States that his diabetes has been diet controlled. His last A1c was 6.9. Did not tolerate metformin in the past. He does not have testing supplies. He states that he was diagnosed with diabetes following his mitral valve replac ement. Uro: Has a erectile dysfunction not on any medication. Secondary to diabetes. Colonoscopy: Completed 2013-he was due in 2023, states that he does not want to do screening anymore [facility] Medical History (Updated 04/27/25 @ 08:46 by Leticia Mir RN) Current use of anticoagulant therapy Endocarditis Surgical History (Updated 03/24/25 @ 12:27 by Monse Chu PA-C) Hx of colonoscopy History of hip surgery Mitral valve replaced Family History (Updated 03/24/25 @ 09:18 by Charu Nunez CMA) Mother Asthma Lymph node cancer Social History (Updated 03/24/25 @ 09:18 by BASSAM [place] Housing: House Alcohol intake: former Comment: stopped 2 year ago 2022 Patient Tobacco Use Status: Never used Tobacco e-Cigarette/Vaping Use: Never Used Second Hand Smoke Exposure: Yes (limited) service: No 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al status: retired 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: retiered 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al exposures/hazards: No Cognitive needs: No Hearing needs: No Vision needs: No Questionnaire Thrive Questionnaire Date Thrive assessed: 03/24/25 I am a: Patient What is your living situation today?: I have a steady place to live Within the past 12 months, did the food you bought not last and you didn't have the money to get more?: Never true Within the past 12 months, did you worry whether your food would run out before you got money to buy more?: Never true Do you have trouble paying for medicines?: No Do you have trouble getting transportation to medical appointments?: No Do you have trouble paying your heating and electricity bill?: No Do you have trouble taking care of your child, family member or friend?: No Do you have trouble with day-to-day activities such as bathing, preparing meals, shopping, managing finances, etc.?: No Are you currently unemployed and looking for a job?: No Are you interested in more education?: No Please select the resources that you would like help with: None Currently or been in a relationship where the following occur: No concerns reported THRIVE Score: 0 AUDIT C Alcohol Use Questionnaire (AUDIT-C) 1. How often do you have a drink containing alcohol?: Never 3. How often do you have six or more drinks on one occasion?: Never Total Score: 0 GRZEGORZ-7 AMB Questionnaire GRZEGORZ-7 Date GRZEGORZ - 7 assessed: 03/24/25 Source: Developed by Drs. Luis San, Lyndsay Lewis, Anthnoy Bonilla and colleagues, with an educational domingo from [employer]. Physical exam (Primary Care) Vital Signs: Last Vital Signs Temp 97.7 F 11/09/25 08:44 Pulse 75 11/09/25 08:44 Resp 14 11/09/25 08:44 BP 128/68 11/09/25 08:44 Pulse Ox 98 11/09/25 08:44 Oxygen Delivery Method Room Air 11/09/25 08:44 BMI result Body Mass Index 21.2 Tobacco/Smoking Status: Tobacco use Status Tobacco use date assessed 11/09/25 11/09/25 08:49 Patient Tobacco Use Status Never used Tobacco 11/09/25 08:49 e-Cigarette/Vaping Use Never Used 11/09/25 08:49 Thrive Assessment: Date of Thrive Assessment Date Thrive assessed 03/24/25 11/09/25 08:49 Currently or been in a relationship where the following occur: No concerns reported Const Orientation/consciousness: patient oriented x3 HENMT Ears: hearing grossly normal bilaterally Neck Thyroid: Thyroid normal Lymphatic: no lymphadenopathy noted Resp Auscultation: clear to auscultation bilaterally Cardio Rate: regular rate Rhythm: regular rhythm Heart sounds: S1 normal heart sound present and S2 normal heart sound present GI Inspection: Yes normal to inspection Palpation (GI): Soft to palpation and Other GI palpation findings present (nontender, no cva tenderness) Auscultation: normoactive bowel sounds Rectal Exam - Male: Yes deferred Skin General skin exam: no rashes or lesions noted Neuro General: patient oriented x3, gait normal and no focal motor deficits Office Procedures Flu Questionnaire Does the patient have a severe egg allergy?: No Does the patient have severe life threatening allergies?: No Does the patient have a fever or illness today?: No Has the patient ever had Guillain-[place] Syndrome?: No Has the patient ever had any past reaction to a flu shot?: No Immunizations Fluarix [id number] (PF) 45 mcg (15 mcg x 3)/0.5 mL IM syringe Performing Provider: Monse Chu PA-C Performing Location: [facility] [place] Administered by: Charu Nunez CMA on 11/09/25 09:39 Dose Route Admin Location Dispensed Lot Number Expiration Date NDC Customer Service Sales Associate 0.5 mL IM Right Deltoid 0.5 mL [id number] 07/31/27 [id number] [employer] VIS Given Date VIS Provided VIS Publication Date 11/09/25 Single Vaccine 25 Eligibility Eligibility Date Funding Source Not [facility] Eligible 11/09/25 Private Results Reviewed Results Reviewed: Laboratory Tests 03/25/25 07/28/25 11/08/25 08:23 10:10 09:06 Sodium 139 139 Potassium 4.5 4.7 Chloride 108 107 Carbon Dioxide 29 Anion Gap 8 L BUN 19 H Creatinine 0.96 1.08 Estimated GFR > 60 > 60 Fasting Glucose 138 H 119 H Estimat Average Glucose 160 151 Hgb A1c (Clinic) 6.8 H Hemoglobin A1c % 7.2 H 6.9 H C-Peptide 2.38 Calcium 9.7 9.2 Total Bilirubin 1.2 H AST 35 ALT 31 27 Alkaline Phosphatase 80 82 Total Protein 7.6 Albumin 4.2 Triglycerides 99 95 Cholesterol 165 159 LDL Cholesterol, Calc 102 H 101 H HDL Cholesterol 44 39 L PSA Screen 3.20 TSH 3.38 Islet Cell Ab Screen NEGATIVE GRZEGORZ Antibody <5 Coding Level of Care Code Est Pt Level 4 (07933) Complex visit Add On G2211 Diagnoses Hyperlipidemia E78.5 S/P mitral valve replacement Z95.2 Diet-controlled type 2 diabetes mellitus E11.9 Assessment & Plan Assessment & Plan (1) Hyperlipidemia: Code(s): E78.5 - Hyperlipidemia, unspecified Category: Medical Plan: continue atorvastatin (2) S/P mitral valve replacement: Code(s): Z95.2 - Presence of prosthetic heart valve Category: Surgical Plan: continue follow up with pvc (3) Diet-controlled type 2 diabetes mellitus: Code(s): E11.9 - Type 2 diabetes mellitus without complications Category: Medical Plan: stable testing supplies ordered Plan flu shot due today Orders: Orders Influenza [id number] Immunization Today Z23 - Encounter for immunization Medications: New blood-glucose meter (FreeStyle Lite Meter kit) Use daily As directed to check blood sugars 1 ea 0RF E11.65 - Type 2 diabetes mellitus with hyperglycemia lancets (FreeStyle Lancets) use daily as directed to check blood glucose 100 ea 3RF E11.65 - Type 2 diabetes mellitus with hyperglycemia blood sugar diagnostic (FreeStyle Lite Strips) Use daily As directed to check blood glucose 100 ea 3RF E11.9 - Type 2 diabetes mellitus without complications alcohol swabs (Alcohol Prep Pads) use daily as directed prior to finger sticks 1 pad topical DAILY 100 ea 3RF E11.9 - Type 2 diabetes mellitus without complications, 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
== END 2025-11-09 09:44 | disposition home or self-care (01) ==
LOC: HO.HMCFM 08:41
PROVIDERS: PCP Physician Assistant; Visit Provider Physician Assistant
DX: E78.5 Hyperlipidemia, unspecified (principal); Z95.2 Presence of prosthetic heart valve; E11.9 Type 2 diabetes mellitus without complications; Z23 Encounter for immunization

== ENCOUNTER → 2025-11-09 08:40 | Outpatient (BNVA) | payer MEDICARE, SELFPAY | PROVIDERS: PCP Physician Assistant; Visit Provider Physician Assistant | DX: E11.9 Type 2 diabetes mellitus without complications (principal); E78.5 Hyperlipidemia, unspecified; Z95.2 Presence of prosthetic heart valve; Z23 Encounter for immunization | CPT/HCPCS: 90471; 90656; 99212 ==